=== PATIENT | female | born 1980 | race Caucasian/White ===

== ENCOUNTER → 2017-12-21 17:50 | Outpatient (CLI) | payer BC, SELFPAY ==
[2017-12-21 18:12] LABS: Absolute Lymphocyte Count 1.85 X10^3/ul (0.83-4.51); Absolute Neutrophil Count 3.9 X10^3/uL (2.0-7.7); Basophil# 0.02 X10^3/uL; Basophil% 0.3 % (0-1); Eosinophil# 0.12 X10^3/uL; Eosinophils% 1.9 % (0-5); Hematocrit 36.1 % (37-47); Lymphocyte # 1.85 X10^3/ul (4.0); Lymphocyte % 28.8 % (19-41); Mean Corp Hgb Conc 33.2 g/gl (32-36); Mean Corpuscular Hgb 30.2 pg (27.0-32.0); Mean Corpuscular Volume 90.9 fL (81-99); Mean Platelet Vol. 10.1 fl (6.2-12.0); Monocyte# 0.55 X10^3/uL; Monocyte% 8.6 % (0-10); Neutrophil # 3.87 X10^3/uL (2.7-7.7); Neutrophil % 60.2 % (47-70); POSITIVE COUNT NO; POSITIVE DIFFERENTIAL NO; POSITIVE MORPHOLOGY NO; Platelet Count 215 K/mm3 (150-450); RBC Distribution Width CV 12.6 % (11.6-14.6); RBC Distribution Width SD 41.3 fl (35.1-43.9); Red Blood Count 3.97 M/mm3 (4.2-5.4); White Blood Count 6.4 K/mm3 (4.4-11.0)
[2017-12-21 19:28] LABS: Vitamin B12 436 pg/mL (211-911); Vitamin D,25 Hydroxy 17.9 ng/mL (29.95-100.01)
[2017-12-21 19:30] LABS: ALB/GLOB Ratio 1.2 RATIO (0.9-2.4); AST(SGOT) 12 U/L (15-37); Alanine Aminotransfer ALT/SGPT 20 U/L (13-56); Albumin, Serum 3.7 g/dL (3.2-5.0); Alkaline Phosphatase 80 U/L (45-117); Anion Gap 6 (5-15); BUN 11 mg/dL (7-18); BUN/Creat Ratio 12.6 RATIO (10-20); Calcium,Total 8.4 mg/dL (8.5-10.1); Chloride 105 mmol/L (98-107); Creatinine, Serum 0.88 mg/dL (0.55-1.02); EST Glomerular Filtration Rate 77 mL/min (>60); Est Glom Filt Rate - Afr Amer 93 mL/min (>60); Globulin 3.2 g/dL (2.2-4.2); Glucose 85 mg/dL (74-106); Potassium 3.7 mmol/L (3.5-5.1); Protein, Total 6.9 g/dL (6.4-8.2); Sodium Level 140 mmol/L (136-145); T4 Free Direct 0.91 ng/dL (0.76-1.46); Thyroid Stim Hormone (TSH) 2.23 uIU/mL (0.358-3.74)
== END ==
PROVIDERS: Family Provider Family Medicine; PCP Family Medicine; Referring Provider Family Medicine; Visit Provider Family Medicine
DX: R53.83 Other fatigue (principal); E01.0 Iodine-deficiency related diffuse (endemic) goiter
CPT/HCPCS: 36415; 80053; 82306; 82607; 84439; 84443; 85025

== ENCOUNTER → 2017-12-27 09:11 | Outpatient (CLI) | payer BC, SELFPAY ==
--- NOTE | 2017-12-27 09:12 | US_ITS ---
STUDY: THYROID ULTRASOUND REASON FOR EXAM: Female, 37 years old. Thyromegaly TECHNIQUE: Ultrasound evaluation of the thyroid was performed with real-time and static bravo-scale imaging. COMPARISON: None. FINDINGS: RIGHT LOBE: The right lobe of the thyroid gland measures 5.2 x 1.7 x 1.8 cm. There is a homogeneous echotexture. There are no demonstrated solid, cystic or complex lesions. LEFT LOBE: The left lobe of the thyroid gland measures 4.5 x 1.4 x 1.7 cm. There is a homogeneous echotexture. There are no demonstrated solid, cystic or complex lesions. ISTHMUS: The isthmus measures 4.0 mm . US/Thyroid IMPRESSION: Enlarged thyroid gland. Electronically Signed: Luz Ngo MD at 21:35 EST Tel , Service support ,
== END ==
PROVIDERS: Family Provider Family Medicine; PCP Family Medicine; Referring Provider Family Medicine; Visit Provider Family Medicine
DX: E01.0 Iodine-deficiency related diffuse (endemic) goiter (principal)
CPT/HCPCS: 76536

== ENCOUNTER → 2018-02-09 15:21 | Outpatient (CLI) | payer BC, SELFPAY ==
[2018-02-09 16:07] LABS: hCG Titer Quant., Serum 507 mIU/mL (<9 non-preg)
== END ==
PROVIDERS: Family Provider Family Medicine; PCP Family Medicine; Referring Provider Obstetrics & Gynecology; Visit Provider Obstetrics & Gynecology
DX: N91.2 Amenorrhea, unspecified (principal)
CPT/HCPCS: 36415; 84702

== ENCOUNTER → 2018-02-12 14:27 | Outpatient (CLI) | payer BC, SELFPAY ==
[2018-02-12 16:19] LABS: hCG Titer Quant., Serum 1818 mIU/mL (<9 non-preg)
== END ==
PROVIDERS: Family Provider Family Medicine; PCP Family Medicine; Visit Provider Obstetrics & Gynecology
DX: Z78.9 Other specified health status (principal)
CPT/HCPCS: 36415; 84702

== ENCOUNTER → 2018-02-20 16:14 | Outpatient (CLI) | payer BC, SELFPAY ==
[2018-02-20 16:02] VITALS: BMI 36.8
[2018-02-20 17:11] LABS: Absolute Lymphocyte Count 1.51 X10^3/ul (0.83-4.51); Absolute Neutrophil Count 4.5 X10^3/uL (2.0-7.7); Basophil# 0.02 X10^3/uL; Basophil% 0.3 % (0-1); Eosinophil# 0.07 X10^3/uL; Hemoglobin 12.4 g/dl (12.0-15.0); Lymphocyte # 1.51 X10^3/ul (4.0); Lymphocyte % 22.6 % (19-41); Mean Corp Hgb Conc 32.6 g/gl (32-36); Mean Corpuscular Hgb 29.5 pg (27.0-32.0); Mean Corpuscular Volume 90.3 fL (81-99); Mean Platelet Vol. 10.3 fl (6.2-12.0); Monocyte# 0.59 X10^3/uL; Monocyte% 8.8 % (0-10); Neutrophil # 4.48 X10^3/uL (2.7-7.7); Neutrophil % 67.3 % (47-70); Platelet Count 229 K/mm3 (150-450); RBC Distribution Width CV 13.4 % (11.6-14.6); RBC Distribution Width SD 43.9 fl (35.1-43.9); Red Blood Count 4.21 M/mm3 (4.2-5.4); White Blood Count 6.7 K/mm3 (4.4-11.0)
[2018-02-20 17:22] LABS: POSITIVE COUNT NO; POSITIVE DIFFERENTIAL NO; POSITIVE MORPHOLOGY NO
[2018-02-20 18:25] LABS: HIV - WCH Non-Reactive (Nonreactive); Rubella IgG 29.9 IU/mL
[2018-02-20 21:15] LABS: Chlamydia Trachomatis by PCR Negative (Negative); Neisserai gonorrhoeae by PCR Negative (Negative); Probe Check PASS; Sample Adequacy Control PASS; Specimen Processing Control PASS
[2018-02-22 10:59] LABS: HEPATITIS B SURFACE AG Negative (Negative)
[2018-02-23 15:35] LABS: HPV APTIMA, High Risk Negative (Negative)
[2018-02-24 03:30] LABS: Rapid Plasmin Reagin (RPR) NONREACTIVE (NONREACTIVE)
== END ==
PROVIDERS: Family Provider Family Medicine; PCP Family Medicine; Referring Provider Obstetrics & Gynecology; Visit Provider Obstetrics & Gynecology
DX: Z34.90 Encounter for supervision of normal pregnancy, unspecified, unspecified trimester (principal); Z12.4 Encounter for screening for malignant neoplasm of cervix
CPT/HCPCS: 36415; 85025; 86592; 86703; 86762; 86850; 86900; 87086; 87088; 87340; 87491; 87591; 87624; 88175; G0145

== ENCOUNTER → 2018-05-08 16:44 | Outpatient (CLI) | payer BC, SELFPAY ==
[2018-05-08 16:13] VITALS: BMI 36.8
== END ==
PROVIDERS: Family Provider Family Medicine; PCP Family Medicine; Referring Provider Obstetrics & Gynecology; Visit Provider Obstetrics & Gynecology
DX: Z34.82 Encounter for supervision of other normal pregnancy, second trimester (principal)
CPT/HCPCS: 36415

== ENCOUNTER 2018-05-14 13:18 | Emergency (ER) | payer BC, SELFPAY ==
[2018-05-08 16:13] VITALS: BMI 36.8
[2018-05-14 13:18] VITALS: BP 113/73; PULSE 86; RESP 18; TEMP 36.8; O2SAT 100; BMI 35.0
--- NOTE | 2018-05-14 13:50 | US_ITS ---
STUDY: FIRST TRIMESTER OBSTETRICAL ULTRASOUND REASON FOR EXAM: Female, 37 years old. Right lower quadrant pain LMP: Unknown. TECHNIQUE: Transvaginal TECHNICAL QUALITY: Adequate. PRIOR ULTRASOUND: None. FINDINGS: is not evaluated, per request of referring provider. heart rate is measured at 130 bpm. Single live intrauterine noted but not specifically interrogated. The cervix is closed and measures 4.7 cm in length. The placenta is posterior and not low-lying. The appendix is not seen on this exam. The right ovary is not seen. The left ovary is not seen. There is no fluid in the cul de sac. US/OB Limited (No Biometrics) IMPRESSION: 1. Neither ovary nor appendix identified on this exam. No pelvic free fluid documented. 2. Single live intrauterine with heart rate measuring 130 bpm. not specifically interrogated. Electronically Signed: Tomás Kearney MD at 16:51 EDT , Service support ,
--- NOTE | 2018-05-14 13:55 | ED.DCSUM_ITS ---
History of Present Illness Chief Complaint: Abd Pain Informant: Patient Onset: Yesterday Context: Sudden Onset Timing: Continuous - not colicky Quality: ache/sore Location: RLQ Current Severity: Moderate Maximum Severity: Moderate Worsened by: nothing Relieved by: nothing Associated Symptoms: none Narrative: Patient is with one ectopic states she is currently 18 weeks , states yesterday she felt this discomfort in the right lower quadrant suddenly while she was at rest, it has persisted. She has no associated anorexia, nausea, vomiting, changes in stool or diarrhea, blood in her stool, urinary symptoms except for unchanged urinary frequency since she has been , or vaginal bleeding/discharge/leakage. It does not change when she moves or changes position. It is not worse or better after eating, urinating, or having bowel movements. She has no fevers. She has had prior cholecystectomy and a c- section, but no other abdominal surgeries. Pain does not radiate into her back but occasionally feels it into her right groin. Thinks this may sound like some type of ovarian discomfort that she has had before associated with cysts. Does not necessarily feel like round ligament pain she has had before. It is only on the right side. She is occasionally feeling the baby move. Denies any contractions. No migration of the pain. Past Medical History - Allergies and Home Meds Allergies/Adverse Reactions: Allergies hydrocodone Adverse Reaction (Verified 05/14/18 13:21) Vomiting Primary Care Physician: Brady Camargo MD [Primary Care Provider] - Surgical History: cholecystectomy Smoking Status: Never smoker Drugs: None Review of Systems General: Denies: Chills, Fever, Sweats Eyes: Denies: Visual changes - bilaterally, Diplopia ENT: Denies: Rhinorrhea, Sore throat Cardiovascular: Denies: Chest pain, Palpitations Respiratory: Denies: Dyspnea, Cough, Dyspnea on exertion Gastrointestinal: Reports: Abdominal pain. Denies: Nausea, Vomiting, Diarrhea, Constipation, Melena, Hematochezia Genitourinary: Reports: Frequency. Denies: Dysuria, Hematuria Musculoskeletal: Denies: Back pain, Extremity Pain Skin: Denies: Rash, Wounds Neurological: Denies: Headache, Weakness, Numbness Physical Exam Vital Signs/Narrative: Vital Signs Temp Pulse Resp BP Pulse Ox 05/14/18 13:18 98.3 F 86 18 113/73 100 Inital Vital Signs reviewed: Yes General: Well nourished, Well developed, No Acute Distress Head: Normocephalic, Atraumatic Eyes: Perrl, EOMI ENT: Moist mucous membranes, No rhinorrhea Neck: Supple, Nontender Cardiovascular: Regular rate, Regular rhythm, No murmurs Respiratory: No distress, CTA bilaterally, Chest nontender Abdomen: Soft, Nontender - pain not reproducible, even w/ deep palpation, Nondistended - c/w gravid uterus to about the umbilicus., Normal bowel sounds. Negative for: Psoas sign, Obturator sign, Rovsig's sign, Sandoval's sign Back: Nontender, Normal Inspection. Negative for: CVA tenderness Extremities: Nontender, No edema Skin: Normal color, No rash Neurological: Alert, Oriented x3, Cranial nerves II-XII grossly intact, Normal Strength, Normal Sensation Psychological: Normal affect, Normal Mood Diagnostic/Tx/Re-eval Impressions Obstetrics Ultrasound 05/14/18 15:28 IMPRESSION: 1. Neither ovary nor appendix identified on this exam. No pelvic free fluid documented. 2. Single live intrauterine with heart rate measuring 130 bpm. not specifically interrogated. Electronically Signed: Tomás Kearney MD at 16:51 EDT , Service support , 05/14/18 13:50 OB Limited [US] Stat 05/14/18 15:28 Transvaginal w/Preg US [US] Stat Laboratory Results 05/14/18 05/14/18 05/14/18 14:15 14:15 14:15 WBC 5.4 RBC 3.75 L Hgb 11.4 L Hct 33.8 L MCV 90.1 MCH 30.4 MCHC 33.7 RDW 14.1 RDW Differential 46.2 H Plt Count 167 MPV 9.9 Immature Gran % (Auto) 0.200 Neut % (Auto) 68.1 Lymph % (Auto) 24.1 Gregory % (Auto) 5.7 Eos % (Auto) 1.7 Baso % (Auto) 0.2 Absolute Neuts (auto) 3.7 Absolute Lymphs (auto) 1.31 Total Counted Not Reportable Sodium 137 Potassium 3.4 L Chloride 106 Carbon Dioxide 25.0 Anion Gap 6 BUN 5 L Creatinine 0.58 Estim Creat Clear Calc 127.89 Est GFR (MDRD) Af Amer 149 Est GFR (MDRD) Non-Af 123 BUN/Creatinine Ratio 8.6 L Glucose 98 Calcium 8.4 L Urine Color Yellow Urine Clarity Sl. Cloudy Urine pH 7.0 Ur Specific [place] 1.010 Urine Protein Negative Urine Glucose (UA) Normal Urine Ketones Negative Urine Occult Blood Negative Urine Nitrite Negative Urine Bilirubin Negative Urine Urobilinogen Normal Ur Leukocyte Esterase Negative Urine RBC 0 SEEN Urine WBC 0 SEEN Ur Squamous Epith Cells 5-10 SEEN Urine Bacteria 1+ Urine Mucus 0 SEEN - Medical Decision Making Obtained an ultrasound of the non-uterus parts of the pelvis, there is nothing emergent seen. The appendix is not visualized. She has no leukocytosis, her white blood count is very low especially in context of , I am not concerned about acute appendicitis given all of this. Again, I was not able to reproduce her pain, but wanted to be cautious. Her urinalysis is normal. heart tones are within normal limits. At this time I think is reasonable that she follows up with her OB doctor first. She is comfortable with that plan. Of note, she declined an offer for Tylenol here in the ED. ED Disposition - Plan for ED Patient: Disposition: Home or Assisted Living Diagnosis: RLQ abdominal pain, Second trimester Instructions: ED Pelvic Pain [facility] Referrals: Brady Camargo MD [Primary Care Provider] - 3-5 Days if not improving (and your OB) Additional Instructions: Tylenol as needed for your pain.
[2018-05-14 14:24] LABS: Mucous, Urine 0 SEEN /hpf (<or=2+); Red Blood Cells-Urine 0 SEEN /hpf (0-5); White Blood Cells 0 SEEN /hpf (0-5)
[2018-05-14 14:26] LABS: Absolute Lymphocyte Count 1.31 X10^3/ul (0.83-4.51); Absolute Neutrophil Count 3.7 X10^3/uL (2.0-7.7); Basophil# 0.01 X10^3/uL; Basophil% 0.2 % (0-1); Color, Urine Yellow (Yellow); Eosinophil# 0.09 X10^3/uL; Eosinophils% 1.7 % (0-5); Glucose, Dipstick Normal (Normal); Hematocrit 33.8 % (37-47); Hemoglobin 11.4 g/dl (12.0-15.0); Ketone-Dipstick Negative (Negative); Leukocyte Esterase-Dipstick Negative /ul (Negative); Lymphocyte # 1.31 X10^3/ul (4.0); Lymphocyte % 24.1 % (19-41); Mean Corp Hgb Conc 33.7 g/gl (32-36); Mean Corpuscular Hgb 30.4 pg (27.0-32.0); Mean Corpuscular Volume 90.1 fL (81-99); Mean Platelet Vol. 9.9 fl (6.2-12.0); Monocyte# 0.31 X10^3/uL; Monocyte% 5.7 % (0-10); Neutrophil % 68.1 % (47-70); Nitrite-Dipstick Negative (Negative); Occult Blood-Urine Negative /ul (Negative); Platelet Count 167 K/mm3 (150-450); Protein-Dipstick Negative (Negative); RBC Distribution Width CV 14.1 % (11.6-14.6); RBC Distribution Width SD 46.2 fl (35.1-43.9); Red Blood Count 3.75 M/mm3 (4.2-5.4); Urine Bilirubin Dipstick Negative (Negative); Urine Clarity Sl. Cloudy (Clear); Urine Urobilinogen Normal (Normal); White Blood Count 5.4 K/mm3 (4.4-11.0)
[2018-05-14 14:27] LABS: POSITIVE COUNT NO; POSITIVE DIFFERENTIAL NO; POSITIVE MORPHOLOGY NO
[2018-05-14 14:29] LABS: Bacteria 1+ /hpf (None Seen); Squamous Epithelial Cells - UA 5-10 SEEN /hpf (5-10)
[2018-05-14 14:37] LABS: Anion Gap 6 (5-15); BUN 5 mg/dL (7-18); BUN/Creat Ratio 8.6 RATIO (10-20); Calcium,Total 8.4 mg/dL (8.5-10.1); Chloride 106 mmol/L (98-107); Creatinine, Serum 0.58 mg/dL (0.55-1.02); EST Glomerular Filtration Rate 123 mL/min (>60); Est Glom Filt Rate - Afr Amer 149 mL/min (>60); Estimated Creatinine Clearance 127.89 ml/min; Glucose 98 mg/dL (74-106); Potassium 3.4 mmol/L (3.5-5.1); Sodium Level 137 mmol/L (136-145)
--- NOTE | 2018-05-14 15:28 | US_ITS ---
STUDY: FIRST TRIMESTER OBSTETRICAL ULTRASOUND REASON FOR EXAM: Female, 37 years old. Right lower quadrant pain LMP: Unknown. TECHNIQUE: Transvaginal TECHNICAL QUALITY: Adequate. PRIOR ULTRASOUND: None. FINDINGS: is not evaluated, per request of referring provider. heart rate is measured at 130 bpm. Single live intrauterine noted but not specifically interrogated. The cervix is closed and measures 4.7 cm in length. The placenta is posterior and not low-lying. The appendix is not seen on this exam. The right ovary is not seen. The left ovary is not seen. There is no fluid in the cul de sac. US/Transvaginal w/Preg US IMPRESSION: 1. Neither ovary nor appendix identified on this exam. No pelvic free fluid documented. 2. Single live intrauterine with heart rate measuring 130 bpm. not specifically interrogated. Electronically Signed: Tomás Kearney MD at 16:51 EDT , Service support ,
== END 2018-05-14 17:35 | disposition home or self-care (01) ==
PROVIDERS: Emergency Provider Emergency Medicine; Family Provider Family Medicine; PCP Family Medicine
DX: O26.892 Other specified pregnancy related conditions, second trimester (principal); R10.31 Right lower quadrant pain; Z3A.18 18 weeks gestation of pregnancy; Z90.49 Acquired absence of other specified parts of digestive tract
CPT/HCPCS: 76815; 76817; 80048; 81001; 85025; 99282; A4216

== ENCOUNTER → 2018-07-28 14:40 | Outpatient (CLI) | payer BC, SELFPAY ==
[2018-07-28 14:13] VITALS: BMI 35.0
[2018-07-28 16:17] LABS: Absolute Lymphocyte Count 1.49 X10^3/ul (0.83-4.51); Absolute Neutrophil Count 4.6 X10^3/uL (2.0-7.7); Basophil# 0.01 X10^3/uL; Basophil% 0.1 % (0-1); Eosinophil# 0.09 X10^3/uL; Eosinophils% 1.3 % (0-5); Hematocrit 31.5 % (37-47); Hemoglobin 10.4 g/dl (12.0-15.0); Lymphocyte # 1.49 X10^3/ul (4.0); Mean Corpuscular Hgb 30.6 pg (27.0-32.0); Mean Corpuscular Volume 92.6 fL (81-99); Mean Platelet Vol. 10.5 fl (6.2-12.0); Monocyte# 0.61 X10^3/uL; Neutrophil # 4.57 X10^3/uL (2.7-7.7); Neutrophil % 67.6 % (47-70); POSITIVE COUNT NO; POSITIVE DIFFERENTIAL NO; POSITIVE MORPHOLOGY NO; Platelet Count 151 K/mm3 (150-450); RBC Distribution Width CV 14.1 % (11.6-14.6); RBC Distribution Width SD 47.4 fl (35.1-43.9); White Blood Count 6.8 K/mm3 (4.4-11.0)
[2018-07-28 17:14] LABS: Glucose Challenge Gest 1H 50g 125 mg/dL (70-140)
== END ==
LOC: LAB 14:41
PROVIDERS: Family Provider Family Medicine; PCP Family Medicine; Referring Provider Obstetrics & Gynecology; Visit Provider Obstetrics & Gynecology
DX: O09.90 Supervision of high risk pregnancy, unspecified, unspecified trimester (principal)
CPT/HCPCS: 36415; 82950; 85025

== ENCOUNTER → 2018-09-18 08:54 | Outpatient (CLI) | payer BC, SELFPAY ==
[2018-09-06 15:24] VITALS: BMI 35.0
--- NOTE | 2018-09-18 08:55 | US_ITS ---
STUDY: SECOND AND THIRD TRIMESTER OBSTETRICAL ULTRASOUND REASON FOR EXAM: Female, 37 years old. Routine survey. LMP: January 09, 2018. TECHNIQUE: Transabdominal TECHNICAL QUALITY: Adequate. PRIOR ULTRASOUND: Comparison is made with prior study dated May 14, 2018. FINDINGS: There is a single intrauterine fetus. The fetus is in a cephalic presentation. There is demonstrated cardiac activity with a heart rate of 149 bpm. There is a normal amniotic fluid volume. The largest amniotic fluid pocket measures 4.0 cm. The amniotic fluid index (ALONDRA) is 11.2 cm. The placenta is fundal in location. There are Grade 1 placental changes. The cervix measures 4.1 cm in length. The bilateral adnexal regions are normal. BIOMETRY: BPD: 9.26 cm: 37 weeks, 5 days HC: 33.22 cm: 38 weeks, 0 days AC: 36.11 cm: 40 weeks, 1 days FL: 7.07 cm: 36 weeks, 2 days CI: 82% FL/BPD: 76% FL/HC: FL/AC: 20% HC/AC: 0.92 age by current US: 38 weeks, 1 days. LISA by current US: October 01, 2018. Estimated weight: 3564 grams, +/- 520 grams, 98 %. Age by LMP: 36 weeks, 0 days. LISA by LMP: October 16, 2018. US/OB Limited With Biometrics IMPRESSION: Single live intrauterine gestation with a mean gestational age of 38 weeks and 1 day. Electronically Signed: Brad Brown, at 15:33 EDT , Service support ,
== END ==
PROVIDERS: Family Provider Family Medicine; PCP Family Medicine; Referring Provider Obstetrics & Gynecology; Visit Provider Obstetrics & Gynecology
DX: O36.5930 Maternal care for other known or suspected poor fetal growth, third trimester, not applicable or unspecified (principal); Z3A.38 38 weeks gestation of pregnancy
CPT/HCPCS: 76816

== ENCOUNTER → 2018-09-22 17:05 | Outpatient (CLI) | payer BC, SELFPAY ==
[2018-09-22 10:38] VITALS: BMI 35.0
== END ==
PROVIDERS: Family Provider Family Medicine; PCP Family Medicine; Referring Provider Obstetrics & Gynecology; Visit Provider Obstetrics & Gynecology
DX: O09.90 Supervision of high risk pregnancy, unspecified, unspecified trimester (principal); Z3A.00 Weeks of gestation of pregnancy not specified
CPT/HCPCS: 87081

== ENCOUNTER 2018-09-26 17:00 | Outpatient (CLI) | payer BC, SELFPAY ==
[2018-09-22 10:38] VITALS: BMI 35.0
[2018-09-26 17:26] VITALS: BMI 38.7
[2018-09-26 17:50] LABS: ROM Internal Control Test YES-OK TO RESULT pt. (Internal QC); ROM Patient Test Negative (Negative)
--- NOTE | 2018-09-27 04:26 | OB.TRI.PN_ITS ---
Progress Notes Date of Service: 09/26/18 Progress Note: Patient presented for questionable loss of fluid and some contractions. Negative ROM plus cervix fingertip dilated no change from previous exam in office heart tone 140 moderate variability reactive no decelerations Matthews: Irregular contractions Assessment and plan false labor reassuring status DC home labor precautions reactive NST Laboratory Studies: Laboratory Tests 09/26/18 Range/Units 17:20 Vag Amniotic Fld Detect Negative (Negative) - Problem List (1) False labor Status: Acute Multi Select Codes - Urinary/Genital Urinary/Genital CPT Codes: 91109-92 non-stress test Interp
== END 2018-09-26 18:15 | disposition home or self-care (01) ==
LOC: WPOUT 17:05 → OBT 17:05
PROVIDERS: Family Provider Family Medicine; PCP Family Medicine; Referring Provider Obstetrics & Gynecology; Visit Provider Obstetrics & Gynecology
DX: O47.9 False labor, unspecified (principal); Z3A.00 Weeks of gestation of pregnancy not specified
CPT/HCPCS: 59050; 84112; 99218; G0378

== ENCOUNTER 2018-10-09 10:00 | Inpatient (IN) | payer BC, SELFPAY ==
[2018-07-28 14:13] VITALS: BMI 35.0
[2018-10-05 14:22] VITALS: BMI 38.7
[2018-10-09] VITALS (17 sets, daily range): BP systolic 102–133; BP diastolic 55–83; PULSE 63–87; RESP 16–18; TEMP 36.1–37.1; O2SAT 97–100; BMI 39.6
[2018-10-09] MEDS: Lactated Ringers 1,000 ML 999 ML IV (10:43)
[2018-10-09 11:00] LABS: Absolute Neutrophil Count 4.4 X10^3/uL (2.0-7.7); Basophil# 0.03 X10^3/uL; Basophil% 0.4 % (0-1); Eosinophil# 0.06 X10^3/uL; Eosinophils% 0.9 % (0-5); Hematocrit 30.1 % (37-47); Hemoglobin 9.7 g/dL (12.0-15.0); Lymphocyte % 25.2 % (19-41); Mean Corp Hgb Conc 32.2 g/dL (32-36); Mean Corpuscular Hgb 29.2 pg (27.0-32.0); Mean Corpuscular Volume 90.7 fL (81-99); Mean Platelet Vol. 11.6 fl (6.2-12.0); Monocyte# 0.52 X10^3/uL; Monocyte% 7.7 % (0-10); NRBC Flagged by Analyzer 0 % (0-5); Neutrophil # 4.39 X10^3/uL (2.7-7.7); Neutrophil % 65.1 % (47-70); Platelet Count 156 K/mm3 (150-450); RBC Distribution Width CV 13.9 % (11.6-14.6); RBC Distribution Width SD 45.7 fl (35.1-43.9); Red Blood Count 3.32 M/mm3 (4.2-5.4); White Blood Count 6.8 K/mm3 (4.4-11.0)
[2018-10-09] MEDS: Sodium Citrate/Citric Acid 30 ML UDC PO (11:22)
[2018-10-09] MEDS: Lactated Ringers 1,000 ML 150 ML IV (11:34)
[2018-10-09] MEDS: Cefazolin 2 GM in 0.9% Normal Saline 100 ML IV (12:53)
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
--- NOTE | 2018-10-09 12:55 | PCM.OPRPT ---
Problem List (1) Advanced maternal age (AMA) in Status: Acute Comment: nipt low risk. growth us ordered 36 weeks. (2) False labor Status: Acute (3) History of delivery Status: Acute Comment: x 4, plan RLTCS BTL (4) History of ectopic Status: Acute (5) Obesity affecting Status: Acute Qualifiers: Comment: BMI 36, discussed healthy weight gain, 1 tm glucola. (6) Status: Acute Qualifiers: Comment: carrier screening negative. NIPT screening- low risk, female. anatomy scan reviewed. (7) Supervision of high risk , antepartum Status: Acute Comment: PRR LISA 10/16/18 girl Jerrell Cerda Maleah, Maylee Rai Delivery Classification: Scheduled Final LISA: 10/16/18 Gestational age: 39 Weeks and 0 Days Indications for : Repeat Elective , Desires elective sterilization Description of Procedure: The patient is a 37-year-old at 39 weeks desired sterilization and repeat presented for repeat . Spinal anesthesia was placed without difficulty. Aquino catheter was placed. The patient was placed in the dorsal supine position with leftward tilt. Patient was prepped and draped in the normal sterile fashion. Pfannenstiel skin incision was made with the scalpel and carried through to the underlying layer of fascia with the scalpel. Fascia was nicked in the midline and the incision extended laterally. Aquino bulb was palpated to be significantly superior to where it should be under the rectus muscles therefore the balloon was retracted down and the initial incision to dissected the rectus bellies off the fascial incision was made very high and the initial intraperitoneal incision was made very high. The rectus bellies were dissected off superiorly and inferiorly with out complication both sharply and bluntly. The peritoneum was entered sharply and carefully dissected around laterally and inferiorly. the incision was stretched and a low transverse uterine incision was made with the scalpel after sharp and blunt dissection of significant scar tissue.. The 's head was delivered atraumatically followed by the anterior and posterior shoulders without complication the rest of the infant delivered. The cord was clamped and cut and the infant was handed off to awaiting nurse. The placenta was delivered spontaneously immediately following and was noted to be intact and have a three-vessel cord. The uterus was exteriorized cleared of all clots and debris, and the incision was closed in a single layer closure using #1 Monocryl. Surgical snow was placed over the area and an additional [id number] suture was used to obtain excellent hemostasis of the incision. The ovaries and fallopian tube were noted to be within normal limits. Right fallopian tube was removed using the LigaSure device without complication transecting across the bell salpinx. Excellent hemostasis was noted. The uterus was returned to the maternal abdomen and gutters were cleared of all clots and debris. The peritoneum was closed with 3-0 Monocryl in a running fashion. Suture was used over the left rectus belly to obtain excellent hemostasis. Fascia was closed with 0 PDS in a running fashion. Subcutaneous tissue was copiously irrigated and the skin was closed with 3-0 Monocryl in a subcuticular fashion. Steri-Strips and Mepilex dressing were applied without complication. Patient was taken to recovery in stable condition. Amniotic Membrane Rupture Type: Artificial Amniotic Fluid Description: Clear Placenta Disposition: [facility] Drain: Aquino to straight drain Cord Entanglement: None Esitmated Blood Loss (ml): 900 Infant Gender: Female Delayed cord clamping: Yes Pre-op Antibiotic Given: Ancef 2 grams IV x1 Pt instructed on risks of surgery: Bleeding, Anesthesia Risks, Permanency Complications: None - Admit VTE Documentation VTE Present on Admission: No VTE Mechan Device Prophylaxis: SCD's Multi Select Codes - Urinary/Genital Urinary/Genital CPT Codes: 82377 C/S+TL, 84113 Delivery [facility]
--- NOTE | 2018-10-09 13:15 | FALS_PTH ---
PATIENT: MARY PAZ LOC: [facility] U#:[id number] AGE/SX: 37/F ROOM: WP009 RE10/09/[address]: Dr. Zaida Hinds MD : [id number] BED: 1 DIS: 10/11/2018 SPEC #: [id number] RECD: 10/09/18 15:09 STATUS: ALAN REQ #: [id number] SARITHA: 10/09/18 13:[address]: Zaida Hinds DEPT: SURGICAL PATHOLOGY RECD BY: Grzegorz Arevalo ENTERED: 10/10/18 14:16 SP TYPE: FALL TUBES OTHR DR: Dr. Brady Camargo MD Tissues: Fallopian tube Procedures: Surgery Specimen Level II HEADER OPERATION: Tubal ligation PRE-OP DIAGNOSIS: Tubal TISSUE SUBMITTED: Fallopian tube MICROSCOPIC DIAGNOSIS Fallopian tube, salpingectomy: Complete cross section of fallopian tube with no pathologic change. Benign paratubular cyst. AM:sp 10/11/18 MICROSCOPIC DESCRIPTION Slides are reviewed. GROSS DESCRIPTION Received in fixative is one container labeled with the patient's name and designated right tube. The specimen consists of a fallopian tube measuring 6 cm in length and up to 1 cm in diameter. Fimbrial end is identified. A paratubal cyst is noted measuring 2 cm in greatest dimension. It is filled with clear fluid. Sections reveal unremarkable cut surfaces. Vocational Education Professional sections are submitted in 1 cassette. /ANT:andrea 10/10/18 TC: 5 CPT: 03259
[2018-10-09] MEDS: Oxytocin 30 units/NS 500 ml 30 UNITS/500 ML IV.SOLN 167 UNITS IV (14:07)
[2018-10-09] MEDS: Lactated Ringers 1,000 ML 100 ML IV (17:24)
[2018-10-09] MEDS: Lactated Ringers 500 ML 999 ML IV (20:31)
[2018-10-09] MEDS: Ketorolac 30 MG/ML Syringe IV (20:31)
[2018-10-09] MEDS: 0.9% Saline Lock 10 ML Syringe 5 ML IV (20:31)
[2018-10-10] VITALS (15 sets, daily range): BP systolic 91–128; BP diastolic 45–68; PULSE 67–99; RESP 14–18; TEMP 36.2–37.1; O2SAT 96–100
[2018-10-10] MEDS: Ketorolac 30 MG/ML Syringe IV ×4 (02:37→20:06)
[2018-10-10 06:09] LABS: Hematocrit 25.8 % (37-47); Hemoglobin 8.4 g/dL (12.0-15.0); Mean Corp Hgb Conc 32.6 g/dL (32-36); Mean Corpuscular Hgb 29.7 pg (27.0-32.0); Mean Corpuscular Volume 91.2 fL (81-99); Platelet Count 113 K/mm3 (150-450); RBC Distribution Width CV 13.9 % (11.6-14.6); RBC Distribution Width SD 45.9 fl (35.1-43.9); Red Blood Count 2.83 M/mm3 (4.2-5.4)
--- NOTE | 2018-10-10 07:27 | PCM.PN.OB ---
Subjective: doing well no complaints pain controlled no CP SOB N V, up to bedside, lochia moderate, going well - Physical Exam General: Alert, Oriented x3 Abdomen: Soft, Non-Distended, - - FF below U. Dressing dry and intact. Minimal tenderness with exam Vital Signs Temp Pulse Resp BP Pulse Ox 97.1 F L 68 16 100/45 L 96 10/10/18 03:30 10/10/18 06:00 10/10/18 06:00 10/10/18 03:30 10/10/18 06:00 Oxygen Delivery Method Room Air Weight: 253 lb 1.451 oz Body Mass Index (BMI) 39.6 Intake and Output for Last 24 Hours 10/08/18 10/09/18 10/10/18 23:59 23:59 23:59 Intake Total 5166.67 / 5166.67 816.67 / 816.67 Output Total 275 / 275 2100 / 2100 Balance 4891.67 / 4891.67 -1283.33 / -1283.33 Laboratory Tests Past 24 Hrs 10/09/18 10/09/18 10/10/18 10:35 10:35 05:45 WBC 6.8 6.0 RBC 3.32 L 2.83 L Hgb 9.7 L 8.4 L Hct 30.1 L 25.8 L MCV 90.7 91.2 MCH 29.2 29.7 MCHC 32.2 32.6 RDW Std Deviation 45.7 H 45.9 H RDW Coeff of Luna 13.9 13.9 Plt Count 156 113 L MPV 11.6 11.0 Immature Gran % (Auto) 0.700 Neut % (Auto) 65.1 Lymph % (Auto) 25.2 [place] % (Auto) 7.7 Eos % (Auto) 0.9 Baso % (Auto) 0.4 Absolute Neuts (auto) 4.4 Absolute Lymphs (auto) 1.70 Nucleated RBC % 0 Blood Type O POSITIVE Antibody Screen NEGATIVE Medical Necessity - Tobacco Use Smoking Status: Never smoker Assessment/Plan All Active Problems (Last Reviewed 10/05/18 @ 14:22 by Lubna Onofre) False labor (Acute) (Acute) Obesity affecting (Acute) History of ectopic (Acute) Advanced maternal age (AMA) in (Acute) History of delivery (Acute) Supervision of high risk , antepartum (Acute) s/p LTCS PPD # 1 1. routine post care 2. breast feeding- support given 3. rh positive 4. rubella immune
[2018-10-10] MEDS: 0.9% Saline Lock 10 ML Syringe 5 ML IV ×3 (08:26→20:06)
[2018-10-10] MEDS: Acetaminophen 500 MG Tablet 1000 MG PO (16:57)
[2018-10-10] MEDS: oxyCODONE 5 MG Tablet PO ×2 (18:30→23:55)
[2018-10-11] MEDS: Ketorolac 30 MG/ML Syringe IV ×3 (02:14→13:38)
[2018-10-11] MEDS: 0.9% Saline Lock 10 ML Syringe 5 ML IV (02:14)
[2018-10-11 02:15] VITALS: BP 112/64; PULSE 86; RESP 16; TEMP 36.5; O2SAT 94
--- NOTE | 2018-10-11 07:40 | PCM.PN.OB ---
Subjective: doing well no complaints pain controlled no CP SOB N V ambulating well tolerating po lochia moderate, going well - Physical Exam General: Alert, Oriented x3 Abdomen: Soft, Non-Distended, - - FF below U. Dressing dry and intact. Pain controlled Vital Signs Temp Pulse Resp BP Pulse Ox 97.7 F L 86 16 112/64 94 10/11/18 02:15 10/11/18 02:15 10/11/18 02:15 10/11/18 02:15 10/11/18 02:15 Oxygen Delivery Method Room Air Weight: 253 lb 1.451 oz Body Mass Index (BMI) 39.6 Intake and Output for Last 24 Hours 10/09/18 10/10/18 10/11/18 23:59 23:59 23:59 Intake Total 5166.67 / 5166.67 816.67 / 816.67 Output Total 275 / 275 3300 / 3300 Balance 4891.67 / 4891.67 -2483.33 / -2483.33 Medical Necessity - Tobacco Use Smoking Status: Never smoker Assessment/Plan All Active Problems (Last Reviewed 10/05/18 @ 14:22 by Lubna Onofre) False labor (Acute) (Acute) Obesity affecting (Acute) History of ectopic (Acute) Advanced maternal age (AMA) in (Acute) History of delivery (Acute) Supervision of high risk , antepartum (Acute) s/p LTCS PPD # 2 1. routine post care 2. breast feeding- support given 3. rh positive 4. rubella immune 5. home today
[2018-10-11] MEDS: oxyCODONE 5 MG Tablet PO ×2 (07:51→13:48)
--- NOTE | 2018-10-11 07:57 | DCINST_ITS ---
Additional Instructions: If you experience any of the following, contact your healthcare provider. * Bleeding that soaks a pad every hour for 2 hours * Fever 100.4 or higher * Unrelieved incision or abdominal pain * Swelling, redness, discharge or bleeding from your incision or episiotomy site * Your incision begins to separate * Problems urinating (including inability to urinate or burning while urinating). * Visual changes * Severe headache * Flu-like symptoms * Pain or redness in one of both of your breasts * Pain, warmth, tenderness or swelling in your legs, especially the calf area * Frequent nausea and vomiting * Symptoms of depression or anxiety If you experience any of the following, call 911 or go to the nearest Emergency Room. * Chest pain * Problems breathing * Seizure activity * Partial or complete paralysis of a body part, slurred speech, weakness or drooping of the face, or a sudden inability to walk or hold your balance Allergies/Adverse Reactions: Allergies hydrocodone Adverse Reaction (Verified 10/05/18 14:22) Vomiting Medications to take at Discharge vitamin#30 30 mg iron-10 mg iron-folic acid 1 mg-omg3 capsule 1 cap PO DAILY cap 02/20/18 Ferrous Sulfate 325 mg PO DAILY@0800 09/26/18 Ferrous Sulfate 325 mg PO DAILY #30 tab 10/11/18 Naproxen [Naprosyn] 500 mg PO BID PRN PRN #60 tab 10/11/18 Oxycodone HCl/Acetaminophen [Percocet 5/325] 1 - 2 tab PO Q4H PRN PRN 7 Days #28 tab 10/11/18 The following prescriptions were given: Ferrous Sulfate 325 mg PO DAILY #30 tab Transmission Status: Pending to [facility] Naproxen [Naprosyn] 500 mg PO BID PRN PRN #60 tab PRN Reason: Pain Transmission Status: Pending to [facility] Oxycodone HCl/Acetaminophen [Percocet 5/325] 1 - 2 tab PO Q4H PRN PRN 7 Days #28 tab PRN Reason: Pain Transmission Status: Sent to [facility] Follow-Up: Call to make an appointment with your doctor for an incision check in 1-2 weeks. You will also need a 6 week post- follow up appointment. Test results from this visit will be discussed in further detail at your follow- up appointment, if applicable. Primary Care Physician: Brady Camargo MD [Primary Care Provider] -
--- NOTE | 2018-10-11 07:57 | PCM.DCCSEC ---
Additional Instructions: If you experience any of the following, contact your healthcare provider. Bleeding that soaks a pad every hour for 2 hours Fever 100.4 or higher Unrelieved incision or abdominal pain Swelling, redness, discharge or bleeding from your incision or episiotomy site Your incision begins to separate Problems urinating (including inability to urinate or burning while urinating). Visual changes Severe headache Flu-like symptoms Pain or redness in one of both of your breasts Pain, warmth, tenderness or swelling in your legs, especially the calf area Frequent nausea and vomiting Symptoms of depression or anxiety If you experience any of the following, call 911 or go to the nearest Emergency Room. Chest pain Problems breathing Seizure activity Partial or complete paralysis of a body part, slurred speech, weakness or drooping of the face, or a sudden inability to walk or hold your balance Allergies/Adverse Reactions: Allergies hydrocodone Adverse Reaction (Verified 10/05/18 14:22) Vomiting Medications to take at Discharge vitamin#30 30 mg iron-10 mg iron-folic acid 1 mg-omg3 capsule 1 cap PO DAILY cap 02/20/18 Ferrous Sulfate 325 mg PO DAILY@0800 09/26/18 Ferrous Sulfate 325 mg PO DAILY #30 tab 10/11/18 Naproxen [Naprosyn] 500 mg PO BID PRN PRN #60 tab 10/11/18 Oxycodone HCl/Acetaminophen [Percocet 5/325] 1 - 2 tab PO Q4H PRN PRN 7 Days #28 tab 10/11/18 The following prescriptions were given: Ferrous Sulfate 325 mg PO DAILY #30 tab Transmission Status: Pending to [facility] Naproxen [Naprosyn] 500 mg PO BID PRN PRN #60 tab PRN Reason: Pain Transmission Status: Pending to [facility] Oxycodone HCl/Acetaminophen [Percocet 5/325] 1 - 2 tab PO Q4H PRN PRN 7 Days #28 tab PRN Reason: Pain Transmission Status: Sent to [facility] Follow-Up: Call to make an appointment with your doctor for an incision check in 1-2 weeks. You will also need a 6 week post- follow up appointment. Test results from this visit will be discussed in further detail at your follow-up appointment, if applicable. Primary Care Physician: Brady Camargo MD [Primary Care Provider] -
[2018-10-11 08:00] VITALS: BP 114/69; PULSE 84; RESP 16; TEMP 36.6
[2018-10-11 13:29] LABS: Pathology Specimen OB SEE PATHOLOGY REPORT
[2018-10-11 13:31] VITALS: BP 118/69; PULSE 71; RESP 16; TEMP 36.6
== END 2018-10-11 14:50 | disposition home or self-care (01) | DRG 785 ==
PROVIDERS: Admitting Provider Obstetrics & Gynecology; Family Provider Family Medicine; PCP Family Medicine; Referring Provider Obstetrics & Gynecology; Visit Provider Obstetrics & Gynecology
PROC: 10D00Z1 Extraction of Products of Conception, Low, Open Approach (ICD-10-PCS; CPT 59514; principal; 2018-10-09 11:45)
DX: O34.211 Maternal care for low transverse scar from previous cesarean delivery (principal); O99.214 Obesity complicating childbirth; E66.9 Obesity, unspecified; Z30.2 Encounter for sterilization; Z37.0 Single live birth; Z90.49 Acquired absence of other specified parts of digestive tract; Z87.59 Personal history of other complications of pregnancy, childbirth and the puerperium; Z3A.39 39 weeks gestation of pregnancy
CPT/HCPCS: 85025; 85027; 86850; 86900; 86901; 88302; 99218; J7120; A4216; G0378

== ENCOUNTER → 2019-04-19 | Outpatient (CLI) | payer BC, SELFPAY ==
[2019-03-28 11:30] VITALS: BMI 39.6
[2019-04-19 17:26] LABS: Absolute Lymphocyte Count 1.97 X10^3/uL (0.83-4.51); Absolute Neutrophil Count 4.3 X10^3/uL (2.0-7.7); Basophil# 0.04 X10^3/uL; Basophil% 0.6 % (0-1); Eosinophil# 0.19 X10^3/uL; Eosinophils% 2.7 % (0-5); Hematocrit 36.9 % (37-47); Lymphocyte # 1.97 X10^3/ul (4.0); Lymphocyte % 27.9 % (19-41); Mean Corp Hgb Conc 32.5 g/dL (32-36); Mean Corpuscular Hgb 28.6 pg (27.0-32.0); Mean Corpuscular Volume 88.1 fL (81-99); Monocyte# 0.58 X10^3/uL; Monocyte% 8.2 % (0-10); NRBC Flagged by Analyzer 0 % (0-5); Neutrophil # 4.26 X10^3/uL (2.7-7.7); Neutrophil % 60.3 % (47-70); Platelet Count 228 K/mm3 (150-450); RBC Distribution Width CV 13.2 % (11.6-14.6); RBC Distribution Width SD 42.8 fl (35.1-43.9); Red Blood Count 4.19 M/mm3 (4.2-5.4); White Blood Count 7.1 K/mm3 (4.4-11.0)
[2019-04-19 18:12] LABS: T4 Free Direct 0.93 ng/dL (0.76-1.46); Thyroid Stim Hormone (TSH) 1.96 uIU/mL (0.358-3.74)
== END | disposition home or self-care (01) ==
LOC: LABSPEC 17:05
PROVIDERS: PCP Family Medicine; Referring Provider Obstetrics & Gynecology; Visit Provider Obstetrics & Gynecology
DX: R10.9 Unspecified abdominal pain (principal); G89.29 Other chronic pain; E56.9 Vitamin deficiency, unspecified; R53.82 Chronic fatigue, unspecified
CPT/HCPCS: 36415; 82306; 84439; 84443; 85025

== ENCOUNTER → 2019-04-20 | Outpatient (CLI) | payer BC, SELFPAY ==
[2019-03-28 11:30] VITALS: BMI 39.6
--- NOTE | 2019-04-20 08:16 | CT_ITS ---
STUDY: CT ABDOMEN AND PELVIS WITH AND WITHOUT CONTRAST REASON FOR EXAM: Female, 38 years old. UMBILICAL AND PELVIC PAIN. PRIOR X 5 AND CHOLECYSTECTOMY RADIATION DOSAGE (If Supplied By Facility): CTDIvol = ( 20.17 ) mGy, DLP = ( 2566.99 ) mGycm TECHNIQUE: Transaxial images were obtained from the dome of the diaphragm to the symphysis pubis with oral contrast. Oral and IV Readi-CAT and 100mL Isovue-300 was administered. Sagittal and coronal images were reconstructed. Individualized dose optimization techniques were used for this CT. COMPARISON: None. FINDINGS: The visualized lung bases are unremarkable. The visualized portions of the heart are within normal limits. Normal liver. There are surgical clips in the gallbladder fossa consistent with a prior cholecystectomy. Borderline splenomegaly. Normal pancreas. Normal bilateral adrenal glands. Normal right kidney. Normal left kidney. Normal visualized stomach. Normal small intestine. Normal colon. The appendix is visualized and appears normal. Normal abdominal aorta. Normal inferior vena cava. There is borderline retroperitoneal lymphadenopathy with enlarged nodes no greater than 10mm in the short axis diameter. Normal urinary bladder. Small lymph nodes are seen in the right lower quadrant mesentery suggestive of mesenteric adenitis. There is a 2.2 cm cyst in the right ovary. There is a small umbilical hernia containing fat. Normal osseous structures. CT/CT Abd/Pelvis W/WO Contrast IMPRESSION: Borderline splenomegaly. 2.2 cm cyst in the right ovary. Findings suggestive of mesenteric adenitis in the right lower quadrant. Electronically Signed: Brad Brown, at 15:15 EST , Service support ,
== END | disposition home or self-care (01) ==
LOC: CT 08:16
PROVIDERS: PCP Family Medicine; Referring Provider Obstetrics & Gynecology; Visit Provider Obstetrics & Gynecology
DX: R10.9 Unspecified abdominal pain (principal); G89.29 Other chronic pain
CPT/HCPCS: 74178; Q9967

== ENCOUNTER 2020-07-17 23:10 | Emergency (ER) | payer BC, SELFPAY ==
[2019-04-26 09:28] VITALS: BMI 39.6
[2020-07-17 23:11] VITALS: BP 134/64; PULSE 86; RESP 19; TEMP 36.8; O2SAT 98; BMI 38.3
--- NOTE | 2020-07-17 23:19 | RAD_ITS ---
STUDY: X-RAY CHEST REASON FOR EXAM: Female, 39 years old. Chest pain. TECHNIQUE: AP COMPARISON: 03/05/2017 CXR FINDINGS: No apparent pneumothorax, pneumonia, pleural effusion, or edema. Cardiac silhouette, roderick and mediastinal contours are within normal limits. No acute osseous abnormality. No evidence of free air under the diaphragm. RAD/Chest 1 View (Portable) IMPRESSION: Negative chest radiograph. Electronically Signed: Rasta Mas MD at 0:20 EDT Tel , Service support ,
--- NOTE | 2020-07-17 23:19 | EKG12_ITS ---
Test Reason : CP Blood Pressure : / mmHG Vent. Rate : 077 BPM Atrial Rate : 077 BPM P-R Int : 158 ms QRS Dur : 086 ms QT Int : 368 ms P-R-T Axes : 035 -06 009 degrees QTc Int : 416 ms Normal sinus rhythm Normal ECG Confirmed by VALORIE BARRERA, JONO ([id number]), development editor TYRONE ROSSI ([id number]) on 07/21/2020 10:33:31 AM Referred By: CL Confirmed By:JONO EUGENE MD
--- NOTE | 2020-07-17 23:20 | ED.VIS.CHEST ---
HPI History of Present Illness Chief Complaint: Chest Pain Informant: patient Narrative Narrative: 39-year-old female presents with concern for chest pain. States it began approximately 2 hours ago. States that it was sharp in nature and has improved. States that she was somewhat short of breath. Denies any nausea, vomiting, diaphoresis. Denies any fever, chills, cough. Denies any trauma. Denies any history of DVT or pulmonary embolism. Denies any recent long trips, surgeries, hospitalizations. PFSH PFSH Medical History Arthritis Chronic abdominal pain Fatigue History of ectopic Thyroid disorder Home Medications cholecalciferol (vitamin D3) 75 mcg (3,000 unit) tablet 6,000 unit PO DAILY tab 04/26/19 [History Last Taken Unknown] omega-3 fatty acids 1,000 mg capsule 1,000 mg PO DAILY 04/26/19 [History Last Taken Unknown] vitamin B complex 1 tab PO DAILY 04/26/19 [History Last Taken Unknown] Allergy/AdvReac Type Severity Reaction Status Date / Time hydrocodone AdvReac Vomiting Verified 07/17/20 23:18 Family History Brother High cholesterol Grandmother Asthma High cholesterol Thyroid disorder Surgical History delivery delivered H/O unilateral salpingectomy History of esophagogastroduodenoscopy (EGD) Hx of cholecystectomy Hx of colonoscopy Hx of unilateral salpingectomy Social History Smoking Status: Never smoker alcohol intake: never substance use type: does not use caffeine: No what type of physical activity do you participate in: walking seatbelt use: always do you feel safe at home: Yes 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 [employer] ED Constitutional Constitutional ED: Denies chills, fever(s) or sweats Eyes Eyes: Denies blurry vision, change in vision or diplopia ENT ENT ED: Denies rhinorrhea or sore throat Cardiovascular Cardiovascular: Reports chest pain; Denies orthopnea, palpitations or racing heartbeat Respiratory/Chest Respiratory/Chest: Reports dyspnea; Denies cough, dyspnea on exertion, orthopnea or sputum Gastrointestinal Gastrointestinal: Denies abdominal pain, constipation, diarrhea, melena, nausea or vomiting Genitourinary Genitourinary ED: Denies dysuria, hematuria or urinary frequency Musculoskeletal Musculoskeletal: Denies arthralgias, myalgias or neck pain Integumentary Denies rash Neurologic Neurologic: Denies headache(s), paresthesias or weakness Psychiatric Psychiatric: Denies anxiety or depression Hematologic/Lymphatic Hematologic/Lymphatic: Denies easy bleeding or easy bruising Allergic/Immunologic Allergic/Immunologic ED: Denies mouth swelling or tongue swelling EXAM Physical Exam Const Vital Signs: 07/17/20 23:11 07/17/20 23:20 07/17/20 23:25 Temperature 98.2 F Temperature Source Temporal Pulse Rate 86 Respiratory Rate 19 H Respiratory Effort Normal Respiratory Pattern Normal Blood Pressure 134/64 H Blood Pressure Mean 87 Pulse Ox 98 Oxygen Delivery Method Room Air Room Air 07/18/20 00:11 07/18/20 01:00 07/18/20 02:29 Temperature Temperature Source Pulse Rate 80 76 77 Respiratory Rate 19 H 18 18 Respiratory Effort Respiratory Pattern Blood Pressure 103/68 104/57 L 99/58 L Blood Pressure Mean 79 72 71 Pulse Ox 98 99 95 Oxygen Delivery Method Room Air Room Air Room Air Positive well nourished and well developed General Appearance ED: well developed HEENT Reports TM's clear and moist mucous membranes normocephalic and atraumatic Tympanic Membrane ED: Yes TM's clear Eyes PERRL and EOMs intact bilaterally Neck no lymphadenopathy, supple and no JVD Chest Wall inspection of chest normal Resp normal respiratory effort and clear to auscultation bilaterally Cardio regular rate, S1 normal heart sound, S2 normal heart sound and no murmurs Peripheral Pulses: pulses 2+ throughout GI soft to palpation, non-tender and non-distended Back/Spine no CVA tenderness and no thoracic nor lumbar tenderness Extremity normal to inspection General Extremety ED: Negative for edema or tenderness General Extremity: Negative for edema Neuro oriented x3, CN's II-XII intact bilaterally and no sensory deficits noted Sensorium / Orientation: alert Motor Exam: strength 5/5 throughout Psych mental status grossly normal Skin no rashes or lesions noted MDM MDM MDM Narrative Medical decision making narrative: Patient appears well and nontoxic. Vital signs within normal limits. EKG nonischemic. Two troponin by 3 hours negative. Chest x-ray interpreted by myself shows no evidence of infiltrate or cardiomegaly. Radiology concurs. D-dimer negative. Unclear the cause of the patient's chest pain however patient is low risk for ACS and will be advised to follow-up with her primary care provider. Asked to return for new or worsening symptoms. Patient agreeable and discharged home in stable condition. Lab Data Attestation: I reviewed the patient's lab results. Labs: Laboratory Results - last 24 hr 07/17/20 07/17/20 07/17/20 23:20 23:20 23:20 WBC 7.9 RBC 4.00 L Hgb 11.6 L Hct 35.8 L MCV 89.5 MCH 29.0 MCHC 32.4 RDW Std Deviation 43.1 RDW Coeff of Luna 13.2 Plt Count 220 MPV 10.1 Immature Gran % (Auto) 0.300 Neut % (Auto) 57.5 Lymph % (Auto) 29.8 [place] % (Auto) 9.6 Eos % (Auto) 2.2 Baso % (Auto) 0.6 Absolute Neuts (auto) 4.5 Absolute Lymphs (auto) 2.35 Nucleated RBC % 0 D-Dimer Quant (PE/DVT) 0.42 Sodium 139 Potassium 3.9 Chloride 106 Carbon Dioxide 28.0 Anion Gap 5 BUN 13 Creatinine 0.91 Estim Creat Clear Calc 79.91 Est GFR (MDRD) Af Amer 88 Est GFR (MDRD) Non-Af 72 BUN/Creatinine Ratio 14.3 Glucose 99 Calcium 8.5 Troponin I < 0.015 07/18/20 02:10 WBC RBC Hgb Hct MCV MCH MCHC RDW Std Deviation RDW Coeff of Luna Plt Count MPV Immature Gran % (Auto) Neut % (Auto) Lymph % (Auto) [place] % (Auto) Eos % (Auto) Baso % (Auto) Absolute Neuts (auto) Absolute Lymphs (auto) Nucleated RBC % D-Dimer Quant (PE/DVT) Sodium Potassium Chloride Carbon Dioxide Anion Gap BUN Creatinine Estim Creat Clear Calc Est GFR (MDRD) Af Amer Est GFR (MDRD) Non-Af BUN/Creatinine Ratio Glucose Calcium Troponin I < 0.015 Radiography Chest X-Ray - ED: 1 View, Read by ED Physician, Read by Radiologist and Normal Diagnostic Testing: Radiology Impression Chest X-Ray 07/17/20 23:19 IMPRESSION: Negative chest radiograph. Electronically Signed: Rasta Mas MD at 0:20 EDT Tel , Service support , Rhythm Strip Rhythm Strip: Sinus Rhythm Rate: 77 Ectopy: None EKG Initial EKG: Attestation: I personally reviewed and interpreted this EKG as follows: Interpretation: Sinus Rhythm and No Acute Injury Pattern Comments: Normal sinus rhythm at 77 bpm. DC interval 158 ms. QTC of 416 ms. No acute ischemia. Discharge Plan Triage Chief Complaint: Chest Pain ED Provider: Babatunde Boothe Dx/Rx/DC Orders Clinical Impression: Chest pain Instructions: ED Chest Pain, Uncertain Cause Prescriptions: No Action cholecalciferol (vitamin D3) 3,000 unit tablet 3,000 unit tablet 6,000 unit PO DAILY RF: 0 omega-3 fatty acids [Fish Oil Concentrate] 1,000 mg capsule 1,000 mg PO DAILY RF: 0 vitamin B complex [B Complex-Vitamin B12] Tablet 1 tab PO DAILY RF: 0 Referrals: PHILLIP MENDEZ [Other] - 2 Days Disposition Disposition: Home, self care
[2020-07-17 23:30] LABS: Absolute Lymphocyte Count 2.35 X10^3/uL (0.83-4.51); Absolute Neutrophil Count 4.5 X10^3/uL (2.0-7.7); Basophil# 0.05 X10^3/uL; Basophil% 0.6 % (0-1); Eosinophil# 0.17 X10^3/uL; Eosinophils% 2.2 % (0-5); Hematocrit 35.8 % (37-47); Hemoglobin 11.6 g/dL (12.0-15.0); Lymphocyte # 2.35 X10^3/ul (0.83-4.51); Lymphocyte % 29.8 % (19-41); Mean Corp Hgb Conc 32.4 g/dL (32-36); Mean Corpuscular Volume 89.5 fL (81-99); Mean Platelet Vol. 10.1 fl (6.2-12.0); Monocyte# 0.76 X10^3/uL; Monocyte% 9.6 % (0-10); NRBC Flagged by Analyzer 0 % (0-5); Neutrophil # 4.53 X10^3/uL (2.7-7.7); Neutrophil % 57.5 % (47-70); Platelet Count 220 K/mm3 (150-450); RBC Distribution Width CV 13.2 % (11.6-14.6); RBC Distribution Width SD 43.1 fl (35.1-43.9); White Blood Count 7.9 K/mm3 (4.4-11.0)
[2020-07-17 23:42] LABS: D-Dimer Quantitative (DVT/PE) 0.42 FEU/ug/m (0.27-0.49)
[2020-07-17 23:48] LABS: Anion Gap 5 (5-15); BUN 13 mg/dL (7-18); BUN/Creat Ratio 14.3 RATIO (10-20); Calcium,Total 8.5 mg/dL (8.5-10.1); Chloride 106 mmol/L (98-107); Creatinine, Serum 0.91 mg/dL (0.55-1.02); EST Glomerular Filtration Rate 72 mL/min (>60); Est Glom Filt Rate - Afr Amer 88 mL/min (>60); Estimated Creatinine Clearance 79.91 ml/min; Glucose 99 mg/dL (74-106); Potassium 3.9 mmol/L (3.5-5.1); Sodium Level 139 mmol/L (136-145)
[2020-07-18 00:11] VITALS: BP 103/68; PULSE 80; RESP 19; O2SAT 98
[2020-07-18 01:00] VITALS: BP 104/57; PULSE 76; RESP 18; O2SAT 99
[2020-07-18 02:29] VITALS: BP 99/58; PULSE 77; RESP 18; O2SAT 95
[2020-07-18 02:55] VITALS: BP 108/65; PULSE 76; RESP 16
== END 2020-07-18 02:58 | disposition home or self-care (01) ==
PROVIDERS: Emergency Provider Emergency Medicine
DX: R07.9 Chest pain, unspecified (principal); M19.90 Unspecified osteoarthritis, unspecified site
CPT/HCPCS: 71045; 80048; 84484; 85025; 85379; 93005; 99284; A4216

== ENCOUNTER 2020-08-06 | Emergency (ER) | payer BC, SELFPAY ==
[2020-08-06 00:03] VITALS: BP 130/80; PULSE 75; RESP 18; TEMP 36.1; O2SAT 98; BMI 36.0
--- NOTE | 2020-08-06 00:21 | EX.ED.GENINJ ---
HPI History of Present Illness Chief Complaint: Laceration Informant: patient Narrative Narrative: 39-year-old female sustained a left forearm laceration while using a knife to clean her vacuum. Unknown last tetanus. PFSH PFSH Medical History Arthritis Chronic abdominal pain Fatigue History of ectopic Thyroid disorder Home Medications cholecalciferol (vitamin D3) 75 mcg (3,000 unit) tablet 6,000 unit PO DAILY tab 04/26/19 [History Last Taken Unknown] omega-3 fatty acids 1,000 mg capsule 1,000 mg PO DAILY 04/26/19 [History Last Taken Unknown] vitamin B complex 1 tab PO DAILY 04/26/19 [History Last Taken Unknown] Allergy/AdvReac Type Severity Reaction Status Date / Time hydrocodone AdvReac Vomiting Verified 08/06/20 00:05 Family History Brother High cholesterol Grandmother Asthma High cholesterol Thyroid disorder Surgical History delivery delivered H/O unilateral salpingectomy History of esophagogastroduodenoscopy (EGD) Hx of cholecystectomy Hx of colonoscopy Hx of unilateral salpingectomy Social History Smoking Status: Never smoker alcohol intake: never substance use type: does not use caffeine: No what type of physical activity do you participate in: walking seatbelt use: always do you feel safe at home: Yes 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 [employer] ED Constitutional Constitutional ED: Denies chills or weight loss Eyes Eyes: Denies change in vision or diplopia ENT ENT ED: Denies ear pain, rhinorrhea or sore throat Cardiovascular Cardiovascular: Denies chest pain, orthopnea, palpitations or racing heartbeat Respiratory/Chest Respiratory/Chest: Denies cough, dyspnea or orthopnea Gastrointestinal Gastrointestinal: Denies abdominal pain, diarrhea, nausea or vomiting Genitourinary Genitourinary ED: Denies dysuria, hematuria or urinary frequency Musculoskeletal Musculoskeletal: Denies arthralgias or myalgias Integumentary Reports other Details: Laceration ; Denies abscess or rash Neurologic Neurologic: Denies headache(s) or weakness Psychiatric Psychiatric: Denies anxiety, depression, suicidal ideation or suicidal thoughts Endocrine Endocrinology: Denies polydipsia, polyphagia or polyuria Allergic/Immunologic Allergic/Immunologic ED: Denies mouth swelling, tongue swelling or urticaria EXAM Physical Exam Const Vital Signs: 08/06/20 00:03 Temperature 97 F L Temperature Source Temporal Pulse Rate 75 Respiratory Rate 18 Blood Pressure 130/80 H Blood Pressure Mean 96 Pulse Ox 98 Oxygen Delivery Method Room Air Positive well nourished and well developed General Appearance ED: well developed HEENT Reports normocephalic, head/scalp atraumatic and moist mucous membranes Eyes PERRL and EOMs intact bilaterally Neck no lymphadenopathy, supple and no JVD Resp normal respiratory effort and clear to auscultation bilaterally Cardio regular rate, regular rhythm and no murmurs GI normal to inspection, nondistended, normoactive bowel sounds and non-tender Palpation: soft Back/Spine no CVA tenderness and normal ROM Extremity normal to inspection General Extremety ED: Negative for edema General Extremity: Negative for edema Neuro oriented x3 and CN's II-XII intact bilaterally Sensorium / Orientation: alert Motor Exam: strength 5/5 throughout Psych mental status grossly normal Mood & Affect: Negative for depressed or tearful Skin no rashes or lesions noted Skin Narrative: There is a 1 cm linear laceration of the left mid forearm. Neurovascular intact distal. No significant hematoma noted. Muscle function appears normal MDM MDM MDM Narrative Medical decision making narrative: 1% lidocaine was used to anesthetize the area locally. Is washed with Shur-Clens and explored. It was closed using a total of 3 simple erupted 4-0 Ethilon sutures. Bacitracin and Band-Aid applied. Patient will follow-up 7 to 10 days for suture removal Discharge Plan Triage Chief Complaint: Laceration ED Provider: Artis Shi Dx/Rx/DC Orders Clinical Impression: Laceration of forearm, left Instructions: ED Laceration: All Closures Prescriptions: No Action cholecalciferol (vitamin D3) 3,000 unit tablet 3,000 unit tablet 6,000 unit PO DAILY RF: 0 omega-3 fatty acids [Fish Oil Concentrate] 1,000 mg capsule 1,000 mg PO DAILY RF: 0 vitamin B complex [B Complex-Vitamin B12] Tablet 1 tab PO DAILY RF: 0 Primary Care Provider: Krissy Jones Referrals: Krissy Jones MD [Primary Care Provider] - 10 Day for suture removal Disposition Disposition: Home, Self Care
[2020-08-06] MEDS: Diphth,Pertuss(Acell),Tet Vac 0.5 ML Vial IM (00:24)
[2020-08-06] MEDS: Lidocaine 1% (20 ml mdv) 20 ML Vial INFILT (00:25)
== END 2020-08-06 00:46 | disposition home or self-care (01) ==
LOC: ED 00:26
PROVIDERS: Emergency Provider Emergency Medicine; PCP Family Medicine
DX: S51.812A Laceration without foreign body of left forearm, initial encounter (principal); M19.90 Unspecified osteoarthritis, unspecified site; W26.0XXA Contact with knife, initial encounter; Y93.89 Activity, other specified; Y92.009 Unspecified place in unspecified non-institutional (private) residence as the place of occurrence of the external cause; Y99.8 Other external cause status
CPT/HCPCS: 12001; 90471; 90715; 99283

== ENCOUNTER 2021-06-18 18:00 | Outpatient (RCR) | payer BC, SELFPAY ==
--- NOTE | 2021-05-25 14:45 | HP.PTEVAL ---
Patient's Visit Information MARY PAZ is a 40 year old F referred to Physical Therapy by MELISSA Cardona with a diagnosis of RIGHT SHOULDER SUBARCROMIAL IMPINGEMENT ,LBP/NECK PAIN ,B/L ITBAND,BURSITIS. Date of Evaluation: 05/25/21 Physical Therapist: Florian De Luna, PT, Cert MDT, OCS - Visit Plan Frequency: 2x /Week Duration: 4 Weeks Plan: PT INTERVETIONS MCHENZIE EX'S LUMBAR /CERVICAL ,DLS ,POSTURAL EX'S ,RTC/SCAPULAR STRENGTHENING ,IT BAND STICK FOAM ROLLING,HIP STRENGTHENING AND MODALTIES PRN - Subjective This 40 y/o female presents to physical therapy with right shoulder pain ,LBP,NECK PAIN and bursitis of hips. This Patient has had right shoulder pain for ~ 1 month ,did have h/o falling on ice . Patient pain is global . Aggravating factors overhead activities ,lifting., reaching behind back affects function and ADLS'. Alleviating factors rest . Dr prescribed prednisone and muscle relaxer. Initial went to [facility] for shoulder pain. Pain affects sleeping. C/O paresthesia /tingling in fingers . Patient has had LBP for ~ 16 years . Patient LBP is constant. Patient aggravating factors bending, lifting and sitting. Alleviating factors walking. Bowel/bladder -. Coughing/sneezing -. Location pain symmetrical and lateral hip pain. Patient has cervical pain occiput base of neck and c/o paresthesia in hands . Aggravating factors bending, lifting. Alleviating factors rest. Denies dizziness/nausea. C/O WATSON FRONTAL . These symptoms affects QOL and function with activities and daily function with house. 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 Patient goals to decrease symptoms. Patient lateral hips become agitated when laying on hips. SOCAIL; . VOCATION: - Pain Right Shoulder Pain Intensity (Out of 10): 4 Pain Intensity Range: 10 Bilateral Back Pain Intensity (Out of 10): 4 Pain Intensity Range: 10 Bilateral Neck Pain Intensity (Out of 10): 2 Pain Intensity Range: 10 Bilateral Hip Pain Intensity (Out of 10): 3 Pain Intensity Range: 10 - Objective POSTURE: mild forward shoulders. PALAPTION: tender greater trochanter , I-BAND ,. NEURO: c/o paresthesia/tingling thumb region ,reflexes C5-6-7 2/3 ,L3-4,L4-5,L5-S1 2/3,. AROM: shoulder flexion 160 degrees ,abduction 160 degrees ,ER 90 degrees, IR L5. LUMBAR ROM: flexion mod loss ,extension mod loss, side glides min loss. FLEXABLITY: hamstrings mod tight, IT BAND mild tight. CERVICAL ROM: flexion/extension/rotation/lateral flexion min loss. MMT: RTC/DELTOID 4/5. QUADS/HAMS /HIP 4/5 - Special Tests C/S Radiculapathy - Left Upper limb tension test: Negative C/S Radiculapathy - Right Upper limb tension test: Negative C/S Radiculapathy - Left Spurlings: Negative C/S Radiculapathy - Right Spurlings: Negative C/S Radiculapathy - Left Cervical distraction: Negative C/S Radiculapathy - Right Cervical distraction: Negative Sharp Melissa: Negative Vertebral Artery Test: Negative Alar Ligament Test: Negative Cervical Sitting: Protrusion - Mechanical Response: Increases motion Cervical Sitting: Protrusion - Symptoms During Testing: Increases Cervical Sitting: Protrusion - Symptoms After Testing: Worse Cervical Sitting: Retraction - Mechanical Response: No effect Cervical Sitting: Retraction - Symptoms During Testing: No effect Cervical Sitting: Retraction - Symptoms After Testing: No effect Cervical Sitting: Retraction-Extension - Mechanical Response: No effect Cerv Sitting: Retraction-Extension - Symptoms During Testing: No effect Cerv Sitting: Retraction-Extension - Symptoms After Testing: No effect Cervical Sitting: Sidebend Right - Mechanical Response: No effect Cervical Sitting: Sidebend Right - Symptoms During Testing: No effect Cervical Sitting: Sidebend Right - Symptoms After Testing: No effect Cervical Sitting: Sidebend Left - Mechanical Response: No effect Cervical Sitting: Sidebend Left - Symptoms During Testing: No effect Cervical Sitting: Sidebend Left - Symptoms After Testing: No effect Cervical Sitting: Rotation Right - Mechanical Response: No effect Cervical Sitting: Rotation Right - Symptoms During Testing: No effect Cervical Sitting: Rotation Right - Symptoms After Testing: No effect Cervical Sitting: Rotation Left - Mechanical Response: No effect Cervical Sitting: Rotation Left - Symptoms During Testing: No effect Cervical Sitting: Flexion - Mechanical Response: No effect Cervical Sitting: Flexion - Symptoms During Testing: Increases Cervical Sitting: Flexion - Symptoms After Testing: Worse Comments:: TINGLING FINGER L/S Slump test left side: Negative L/S Slump test right side: Negative L/S Left Straight Leg Raise: Negative L/S Right Straight Leg Raise: Negative Lumbar Standing: Flexion - Mechanical Response: No effect Lumbar Standing: Flexion - Symptoms During Testing: Increases Lumbar Standing: Flexion - Symptoms After Testing: Worse Lumbar Standing: Extension - Mechanical Response: No effect Lumbar Standing: Extension - Symptoms During Testing: Increases Lumbar Standing: Right Side Glides - Mechanical Response: No effect Lumbar Standing: Right Side Dalzell - Symptoms During Testing: No effect Lumbar Standing: Right Side Dalzell - Symptoms After Testing: No effect Lumbar Standing: Left Side Dalzell - Mechanical Response: No effect Lumbar Standing: Left Side Dalzell - Symptoms During Testing: No effect Lumbar Standing: Left Side Dalzell - Symptoms After Testing: No effect Lumbar Lying: Flexion - Mechanical Response: No effect Lumbar Lying: Flexion - Symptoms During Testing: Increases Lumbar Lying: Flexion - Symptoms After Testing: Worse Lumbar Lying: Extension - Mechanical Response: No effect Lumbar Lying: Extension - Symptoms During Testing: Decreases Lumbar Lying: Extension - Symptoms After Testing: Better R Hip Scour: Negative R Hip Quadrant - Intraarticular Pathology: Negative R Hip Lyudmila - IT Band: Positive L Hip Scour: Negative L Hip Quadrant - Intraarticular Pathology: Negative L Hip Lyudmila - IT Band: Positive - Goals Goal 1:: I with HEP for lumbar /neck/hips/shoulder Goal Time Frame: 4-6 Weeks Goal 2:: Patient to demonstrate 50 % improvement with decrease pain shoulder /back/neck/hips an improve function Goal Time Frame: 4-6 Weeks Goal 3:: Patient to to be able to use right UE with all functional activities with no limitations. Goal Time Frame: 4-6 Weeks Goal 4:: Patient to improve lumbar ROM for function of recovery to perform housework task Goal Time Frame: 4-6 Weeks Goal 5:: Patient to improve IT band pain so patient can lay on sidxe Goal Time Frame: 4-6 Weeks Goal 6:: Patient to improve quick dash by 5 points to improve QOL and function - Rehabilitation Potential Physical Therapy Diagnosis: This pain has multiple issues with right shoulder pain ,greater trochanteric bursitis /IT-BAND syndrome bilateral, derangement lumbar and cervical pain with decrease ROM ,pain with positioning lumbar ,very tender IT band ,greater trochanter bursitis along with core weakness and postural control control and pain right shoulder tendonitis Rehabilitation Potential: Good - Anticipated Interventions Patient/Client Instruction: Educate patient on: Condition, Plan of Care For the Purpose of:: To decrease pain, To increase ROM, To improve muscle performance and motor function, To improve ability to perform ADL's, To increase tolerance to activity/condition/position, To improve performance and independence with ADL's, To improve ability of physical actions for home/community/work/leisure, To increase flexibility/ROM, To prevent re-injury Therapeutic Exercise to Include: Strength training, Endurance training, Body mechanics, Postural training, Flexibilty training, Active ROM, Dynamic Lumbar Stabilization, Mara Exercises Comment: RTC,HIP For the Purpose of:: To decrease pain, To increase ROM, To improve muscle performance and motor function, To improve ability to perform ADL's, To increase tolerance to activity/condition/position, To improve performance and independence with ADL's, To improve ability of physical actions for home/community/work/leisure, To improve health of tissue, To decrease soft tissue restriction, To increase flexibility/ROM TENS: Yes IF ES: Yes Cryotherapy (ice pack, ice massage): Yes Thermo therapy (hot pack): Yes Ultrasound (thermal/non thermal): Yes For the Purpose of:: To decrease pain, To increase ROM, To improve nutrient delivery to tissue, To increase oxygenation perfusion Thank you for the opportunity to evaluate your patient. For Medicare and Medicare HMO plans, please review the plan of care and approve it. It will need to be FAXED BACK to us at [phone] for Medicare purposes. For Medicare only, by signing this I certify the plan of care. Please let me know if there are questions or concerns regarding this plan of care. Physician Signature: Date:
--- NOTE | 2021-11-18 09:12 | HP.PT.NRP ---
MARY PAZ was seen in my office for initial evaluation on 05/25/21. The following Plan of Care was established for this patient: Initial Frequency: 2x /Week Initial Duration: 4 Weeks Patient/Client Instruction: Educate patient on: Condition, Plan of Care For the Purpose of:: To decrease pain, To increase ROM, To improve muscle performance and motor function, To improve ability to perform ADL's, To increase tolerance to activity/condition/position, To improve performance and independence with ADL's, To improve ability of physical actions for home/community/work/leisure, To increase flexibility/ROM, To prevent re-injury Therapeutic Exercise to Include: Strength training, Endurance training, Body mechanics, Postural training, Flexibilty training, Active ROM, Dynamic Lumbar Stabilization, Mara Exercises For the Purpose of:: To decrease pain, To increase ROM, To improve muscle performance and motor function, To improve ability to perform ADL's, To increase tolerance to activity/condition/position, To improve performance and independence with ADL's, To improve ability of physical actions for home/community/work/leisure, To improve health of tissue, To decrease soft tissue restriction, To increase flexibility/ROM TENS: Yes IF ES: Yes Cryotherapy (ice pack, ice massage): Yes Thermo therapy (hot pack): Yes Ultrasound (thermal/non thermal): Yes For the Purpose of:: To decrease pain, To increase ROM, To improve nutrient delivery to tissue, To increase oxygenation perfusion This patient was last seen in our office . Pertinent comments regarding their Physical therapy will appear below: Patient was seen for PT for shoulder and lumbar for DLS ,ROM and strengthening and HEP thus is d/c from PT At this point I will be discontinuing this patient from physical therapy. I would be happy to see this patient again in the future if found appropriate by the physician. Thank you! Florian De Luna, PT, Cert MDT, OCS Balance/Gait/Functional tests - Balance/Special Test Scores Quick DASH Score: [phone]
== END 2021-06-18 19:00 | disposition home or self-care (01) ==
LOC: PT 18:00
PROVIDERS: PCP Family Medicine
DX: M75.41 Impingement syndrome of right shoulder (principal); M70.61 Trochanteric bursitis, right hip; M70.62 Trochanteric bursitis, left hip; M54.50 Low back pain, unspecified; M54.2 Cervicalgia
CPT/HCPCS: 97014; 97110; 97140; 97162; G0283

== ENCOUNTER → 2021-12-23 | Outpatient (CLI) | payer BC, SELFPAY ==
--- NOTE | 2021-12-23 07:37 | BI_ITS ---
MAMMOGRAPHY - BILATERAL SCREENING REASON FOR EXAM: Female, 41 years old. Routine annual screening examination. PERTINENT HISTORY: Non-contributory. TECHNIQUE: Digital bilateral breast byron (3D mammographic acquisition) in the CC and MLO projections. 2-D mediolateral oblique (MLO) and craniocaudad (CC) views of both breasts were obtained. CAD: Full Field Digital Mammography with Computer Added Detection was performed. COMPARISON: None. Baseline examination. FINDINGS: Breast Composition: There are scattered areas of fibroglandular density. There are no dominant masses or suspicious calcifications. No other significant abnormalities are identified. BI/SCRN MAMM (CAD)W/BYRON BILAT IMPRESSION: Negative screening mammogram. Yearly followup mammogram recommended. (A) ASSESSMENT CATEGORY: BIRADS Category 1: Negative. A letter regarding these results will be sent to the patient by the facility within 30 days. Approximately 10% of breast cancers are not detected by mammography. A normal mammogram should not delay biopsy of a clinically suspicious abnormality. [id number] Electronically Signed: Brad Brown MD at 9:01 EST ,
--- NOTE | 2021-12-23 07:37 | US_ITS ---
STUDY: ULTRASOUND OF THE FEMALE PELVIS - COMPLETE REASON FOR EXAM: Female, 41 years old. Irregular menses LMP: 12/02/2021. TECHNIQUE: Transabdominal and Transvaginal TECHNICAL QUALITY: Adequate. COMPARISON: None. FINDINGS: The uterus is anteverted and is in a midline position. The uterus measures 10 cm x 6 cm x 4.4 cm. There is a Nabothian cyst of the cervix. The endometrium measures 8.0 mm in thickness, and is heterogeneous (striated). There is no demonstrated endometrial mass. There is no demonstrated myometrial mass. I.U.D. - The patient does not have an I.U.D. The right ovary is visualized. The right ovary measures 2.3 cm x 3 cm x 1.6 cm. There is no right ovarian cyst or ovarian mass. There is no visualized right adnexal mass or complex lesion. There is normal arterial and normal venous vascularity. The left ovary is visualized. The left ovary measures 3 cm x 2.8 cm x 1.4 cm. There is no left ovarian cyst or ovarian mass. There is no visualized left adnexal mass or complex lesion. There is normal arterial and normal venous vascularity. There is no fluid in the cul-de-sac. The pre void volume of the bladder was 202 ml. US/Transvaginal Non- IMPRESSION: Normal female pelvis. Electronically Signed: Brad Brown MD at 9:48 EST ,
--- NOTE | 2021-12-23 07:37 | US_ITS ---
STUDY: ULTRASOUND OF THE FEMALE PELVIS - COMPLETE REASON FOR EXAM: Female, 41 years old. Irregular menses LMP: 12/02/2021. TECHNIQUE: Transabdominal and Transvaginal TECHNICAL QUALITY: Adequate. COMPARISON: None. FINDINGS: The uterus is anteverted and is in a midline position. The uterus measures 10 cm x 6 cm x 4.4 cm. There is a Nabothian cyst of the cervix. The endometrium measures 8.0 mm in thickness, and is heterogeneous (striated). There is no demonstrated endometrial mass. There is no demonstrated myometrial mass. I.U.D. - The patient does not have an I.U.D. The right ovary is visualized. The right ovary measures 2.3 cm x 3 cm x 1.6 cm. There is no right ovarian cyst or ovarian mass. There is no visualized right adnexal mass or complex lesion. There is normal arterial and normal venous vascularity. The left ovary is visualized. The left ovary measures 3 cm x 2.8 cm x 1.4 cm. There is no left ovarian cyst or ovarian mass. There is no visualized left adnexal mass or complex lesion. There is normal arterial and normal venous vascularity. There is no fluid in the cul-de-sac. The pre void volume of the bladder was 202 ml. US/Pelvic (Non ) IMPRESSION: Normal female pelvis. Electronically Signed: Brad Brown MD at 9:48 EST ,
== END | disposition home or self-care (01) ==
LOC: OPUS 07:36
PROVIDERS: PCP Family Medicine; Visit Provider Nurse Practitioner Women's Health
DX: Z12.31 Encounter for screening mammogram for malignant neoplasm of breast (principal); N92.0 Excessive and frequent menstruation with regular cycle
CPT/HCPCS: 76830; 76856; 77063; 77067

== ENCOUNTER 2022-02-08 17:08 | Emergency (ER) | payer BC, SELFPAY ==
[2022-02-08 17:10] VITALS: BP 131/82; PULSE 91; RESP 14; TEMP 36.6; O2SAT 97; BMI 37.5
--- NOTE | 2022-02-08 19:15 | CT_ITS ---
STUDY: CT BRAIN WITHOUT CONTRAST REASON FOR EXAM: Female, 41 years old. Pain. Headache behind the right eye. Nausea. RADIATION DOSAGE (If Supplied By Facility): CTDIvol = ( 44.99 ) mGy, DLP = ( 829.85 ) mGycm TECHNIQUE: Transaxial CT imaging of the brain was performed without administration of intravenous contrast material. Individualized dose optimization techniques were used for this CT. COMPARISON: No relevant priors. FINDINGS: Normal soft tissue structures. Normal calvarium. Normal size ventricles and extra-axial spaces for the patient''s age. Normal white matter tracts of the cerebral hemispheres. Normal basal ganglia and thalami. Normal brainstem. Normal cerebellum. There is no intracranial hemorrhage. There are no findings of an acute ischemic infarction. Normal visualized paranasal sinuses. CT/Brain/Head without Contrast IMPRESSION: Normal unenhanced CT scan of the brain. Electronically Signed: Krish Harrington DO at 19:55 EST ,
--- NOTE | 2022-02-08 19:15 | EX.ED.VIS.HA ---
HPI History of Present Illness Chief Complaint: Headache Narrative Narrative: 41-year-old female presenting with headache. She states she feels like it is right-sided and behind her right eye. She states that this began last night and she initially describes having chills and shakes. She states that she did not have a fever. This morning she woke up and her headache had returned. She took ibuprofen which did help the headache a little bit. She feels nauseous but is not vomiting. She does not see halos around light. No visual complaints. No slurred speech, paresthesias. She can move all 4 extremities. No history of migraine headache. She does complains of photophobia and phonophobia. No sick contacts at home. No cough or shortness of breath. PFSH PFS Medical History Arthritis Back pain Cervical strain Chronic abdominal pain Fatigue History of ectopic Lumbar strain Paresthesia and pain of both upper extremities Right leg paresthesias Right shoulder strain Thoracic myofascial strain Thyroid disorder Wry neck Home Medications sertraline 25 mg tablet 25 mg PO DAILY 02/08/22 [History Last Taken Unknown] Allergy/AdvReac Type Severity Reaction Status Date / Time hydrocodone AdvReac Vomiting Verified 02/08/22 17:10 Family History Brother High cholesterol Grandmother Asthma High cholesterol Thyroid disorder Surgical History delivery delivered H/O unilateral salpingectomy History of esophagogastroduodenoscopy (EGD) Hx of cholecystectomy Hx of colonoscopy Hx of unilateral salpingectomy Social History Smoking Status: Never smoker alcohol intake: never substance use type: does not use caffeine: No what type of physical activity do you participate in: walking seatbelt use: always do you feel safe at home: Yes additional social history: 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 [employer] ROS ED Constitutional Constitutional ED: Denies chills or fever(s) Eyes Eyes: Denies change in vision or diplopia ENT ENT ED: Denies rhinorrhea or sore throat Cardiovascular Cardiovascular: Denies chest pain or palpitations Respiratory/Chest Respiratory/Chest: Denies cough or dyspnea Gastrointestinal Gastrointestinal: Reports nausea; Denies abdominal pain or vomiting Genitourinary Genitourinary ED: Denies dysuria or hematuria Musculoskeletal Musculoskeletal: Denies arthralgias Integumentary Denies abscess Neurologic Neurologic: Reports headache(s); Denies paresthesias Psychiatric Psychiatric: Denies anxiety or depression EXAM Physical Exam Const Vital Signs: 02/08/22 17:10 Temperature 98 F Temperature Source Temporal Pulse Rate 91 Respiratory Rate 14 Blood Pressure 131/82 H Blood Pressure Mean 98 Pulse Ox 97 Oxygen Delivery Method Room Air Positive well nourished General Appearance ED: NAD; Negative for pallor HEENT Reports normocephalic atraumatic Eyes PERRL and EOMs intact bilaterally Neck no lymphadenopathy, supple and no meningeal signs Resp normal respiratory effort Effort and Inspection: Negative for retractions Cardio regular rate and regular rhythm GI non-tender Auscultation: normoactive bowel sounds Back/Spine no CVA tenderness Neuro oriented x3 and CN's II-XII intact bilaterally Sensorium / Orientation: awake and alert Psych mental status grossly normal Skin General Skin Exam: Negative for jaundice or pallor MDM MDM MDM Narrative Medical decision making narrative: Patient presenting with headache. She states that last night she had chills and shakes. She has not had a fever. No neck pain or stiffness. No history of head trauma. She has mild nausea. No history of migraines. Patient medicated with Reglan, Benadryl, IV fluids. We will obtain a CT brain and basic lab work. Patient has no concern for due to bilateral salpingectomy. She does not want to be tested for COVID or influenza. CBC and BMP are unremarkable. CT brain negative. Patient given dose of Toradol IV. On reevaluation at 9:21 PM she is feeling improved. She feels like she can be discharged home at this point. I recommend she follow-up with her PCP. Discharged stable condition. Impression: 1. Headache Lab Data Attestation: I reviewed the patient's lab results. Labs: Laboratory Results - last 24 hr 02/08/22 02/08/22 19:30 19:30 WBC 6.5 RBC 4.09 L Hgb 11.8 L Hct 36.9 L MCV 90.2 MCH 28.9 MCHC 32.0 RDW Std Deviation 42.6 RDW Coeff of Luna 13.0 Plt Count 197 MPV 10.2 Immature Gran % (Auto) 0.200 Neut % (Auto) 55.9 Lymph % (Auto) 32.5 Garrett % (Auto) 9.4 Eos % (Auto) 1.5 Baso % (Auto) 0.5 Absolute Neuts (auto) 3.7 Absolute Lymphs (auto) 2.12 Nucleated RBC % 0 Sodium 140 Potassium 3.7 Chloride 107 Carbon Dioxide 28.0 Anion Gap 5 BUN 10 Creatinine 0.81 Estim Creat Clear Calc 87.98 Est GFR (MDRD) Af Amer 100 Est GFR (MDRD) Non-Af 82 BUN/Creatinine Ratio 12.4 Glucose 99 Calcium 8.7 Radiography Diagnostic Testing: Clinical Impression(s) from Imaging Studies Brain CT 02/08/22 19:15 IMPRESSION: Normal unenhanced CT scan of the brain. Electronically Signed: Krish Harrington DO at 19:55 EST Reading Location ID and State: [address] [place] [address] Tel [phone], Service support , Discharge Plan Triage Chief Complaint: Headache ED Provider: Luis Hidalgo Dx/Rx/DC Orders Instructions: ED Headache Unspecified Prescriptions: No Action sertraline 25 mg tablet 25 mg PO DAILY Label Comments: TAKE 1 TABLET BY MOUTH EVERY DAY IN THE MORNING Primary Care Provider: Krissy Jones Referrals: Krissy Jones MD [Primary Care Provider] - Disposition Disposition: Home, Self Care
[2022-02-08] MEDS: Metoclopramide 10 MG/2 ML Vial IV (19:27)
[2022-02-08] MEDS: 0.9% Normal Saline 1,000 ML 999 ML IV (19:27)
[2022-02-08] MEDS: DiphenhydrAMINE 50 MG/ML Syringe 25 MG IV (19:27)
[2022-02-08 19:57] LABS: Absolute Lymphocyte Count 2.12 X10^3/uL (0.83-4.51); Absolute Neutrophil Count 3.7 X10^3/uL (2.0-7.7); Basophil# 0.03 X10^3/uL; Basophil% 0.5 % (0-1); Eosinophils% 1.5 % (0-5); Hematocrit 36.9 % (37-47); Hemoglobin 11.8 g/dL (12.0-15.0); Lymphocyte # 2.12 X10^3/ul (0.83-4.51); Lymphocyte % 32.5 % (19-41); Mean Corpuscular Hgb 28.9 pg (27.0-32.0); Mean Corpuscular Volume 90.2 fL (81-99); Mean Platelet Vol. 10.2 fl (6.2-12.0); Monocyte# 0.61 X10^3/uL; Monocyte% 9.4 % (0-10); NRBC Flagged by Analyzer 0 % (0-5); Neutrophil # 3.65 X10^3/uL (2.7-7.7); Neutrophil % 55.9 % (47-70); Platelet Count 197 K/mm3 (150-450); RBC Distribution Width SD 42.6 fl (35.1-43.9); Red Blood Count 4.09 M/mm3 (4.2-5.4); White Blood Count 6.5 K/mm3 (4.4-11.0)
[2022-02-08] MEDS: Ketorolac 15 MG/ML Vial IV (20:15)
[2022-02-08 20:23] LABS: Anion Gap 5 (5-15); BUN 10 mg/dL (7-18); BUN/Creat Ratio 12.4 RATIO (10-20); Calcium,Total 8.7 mg/dL (8.5-10.1); Chloride 107 mmol/L (98-107); Creatinine, Serum 0.81 mg/dL (0.55-1.02); EST Glomerular Filtration Rate 82 mL/min (>60); Est Glom Filt Rate - Afr Amer 100 mL/min (>60); Estimated Creatinine Clearance 87.98 ml/min; Glucose 99 mg/dL (74-106); Potassium 3.7 mmol/L (3.5-5.1); Sodium Level 140 mmol/L (136-145)
== END 2022-02-08 21:29 | disposition home or self-care (01) ==
PROVIDERS: Emergency Provider Student in an Organized Health Care Education/Training Program; PCP Family Medicine; Visit Provider Student in an Organized Health Care Education/Training Program
DX: R51.9 Headache, unspecified (principal); R11.0 Nausea
CPT/HCPCS: 70450; 80048; 85025; 96361; 96374; 96375; 99284; J7030; A4216

== ENCOUNTER → 2023-06-06 | Outpatient (CLI) | payer BC, SELFPAY ==
--- NOTE | 2023-06-06 09:25 | RAD_ITS ---
STUDY: X-RAY - RIGHT SHOULDER REASON FOR EXAM: Female, 42 years old. Injury TECHNIQUE: 4 view(s) of the shoulder. COMPARISON: Comparison is made with prior study dated May 14, 2021. FINDINGS: Normal glenohumeral articulation. Normal acromioclavicular joint. Normal acromion. Normal humeral head and visualized proximal humerus. The soft tissue structures are unremarkable. Normal visualized pulmonary apex. RAD/Shoulder min 2 Views IMPRESSION: Normal x-ray examination of the shoulder. Electronically Signed: Brad Brown MD at 10:03 EDT ,
== END | disposition home or self-care (01) ==
LOC: MTRAD 09:25
PROVIDERS: PCP Family Medicine; Referring Provider Physician Assistant; Visit Provider Physician Assistant
DX: T14.90XA Injury, unspecified, initial encounter (principal); X58.XXXA Exposure to other specified factors, initial encounter
CPT/HCPCS: 73030

== ENCOUNTER → 2023-09-26 | Outpatient (CLI) | payer BC, SELFPAY ==
--- NOTE | 2023-09-26 12:48 | RAD_ITS ---
STUDY: X-RAY - RIGHT ANKLE REASON FOR EXAM: Female, 42 years old. Sprain TECHNIQUE: 3 view(s) of the ankle. COMPARISON: None. FINDINGS: Normal visualized distal tibia and fibula. Normal medial and lateral malleoli. Normal tibiotalar articulation and ankle mortise. Normal visualized talus and calcaneus. The visualized subtalar, talonavicular, calcaneocuboid and tarsal articulations are normal. The soft tissue structures are unremarkable. RAD/Ankle min 3 Views IMPRESSION: Normal x-ray examination of the ankle. Electronically Signed: Brad Brown MD at 13:36 EDT ,
== END | disposition home or self-care (01) ==
PROVIDERS: PCP Nurse Practitioner Family; Referring Provider Physician Assistant; Visit Provider Physician Assistant
DX: T14.8XXA Other injury of unspecified body region, initial encounter (principal); X58.XXXA Exposure to other specified factors, initial encounter
CPT/HCPCS: 73610

== ENCOUNTER 2024-05-04 00:09 | Emergency (ER) | payer BC, SELFPAY ==
[2024-05-04 00:12] VITALS: BP 146/93; PULSE 82; RESP 18; TEMP 36.4; O2SAT 98; BMI 39.4
--- NOTE | 2024-05-04 00:20 | RAD_ITS ---
PROCEDURE: CHEST 1 VIEW (PORTABLE) 05/04/2024 REASON FOR EXAM: CHEST PAIN TECHNIQUE: Frontal view of the chest. COMPARISON: Chest radiograph dated 07/17/2020. FINDINGS: Hardware: Heart: The heart size is normal. Lungs: The lungs are clear. Bones: The bones are unremarkable. Other: RAD/Chest 1 View (Portable) IMPRESSION: No Acute Findings. Reading Location: [facility]
--- NOTE | 2024-05-04 00:20 | EKG12_ITS ---
Test Reason : CP Blood Pressure : */* mmHG Vent. Rate : 77 BPM Atrial Rate : 77 BPM P-R Int : 178 ms QRS Dur : 86 ms QT Int : 378 ms P-R-T Axes : 43 -4 17 degrees QTcB Int : 427 ms Normal sinus rhythm Normal ECG Confirmed by TONNY BARRERA, ELIZABETH ([id number]), editor school photograph LEIGHTON SORIA ([id number]) on 05/04/2024 8:10:16 AM Referred By: LEI Confirmed By: ELIZABETH LANCASTER MD
[2024-05-04] MEDS: Aspirin 81 MG TAB.CHEW 324 MG PO (00:25)
[2024-05-04 00:26] VITALS: O2SAT 96
[2024-05-04 00:30] LABS: Absolute Lymphocyte Count 2.93 X10^3/uL (0.83-4.51); Basophil# 0.05 X10^3/uL; Basophil% 0.6 % (0-1); Eosinophil# 0.17 X10^3/uL; Eosinophils% 2.2 % (0-5); Hematocrit 36.8 % (37-47); Hemoglobin 12.5 g/dL (12.0-15.0); Lymphocyte # 2.93 X10^3/ul (0.83-4.51); Lymphocyte % 37.3 % (19-41); Mean Corpuscular Hgb 30.3 pg (27.0-32.0); Mean Corpuscular Volume 89.3 fL (81-99); Monocyte# 0.68 X10^3/uL; Monocyte% 8.7 % (0-10); NRBC Flagged by Analyzer 0 % (0-5); Neutrophil # 4.01 X10^3/uL (2.7-7.7); Neutrophil % 50.9 % (47-70); Platelet Count 231 K/mm3 (150-450); RBC Distribution Width CV 12.6 % (11.6-14.6); RBC Distribution Width SD 41.6 fl (35.1-43.9); Red Blood Count 4.12 M/mm3 (4.2-5.4); White Blood Count 7.9 K/mm3 (4.4-11.0)
[2024-05-04 00:43] LABS: Internal QC Validated? YES +Cl - CLEAR BKGD; Pregnancy, Serum, hCG Quali. NEGATIVE Negative
[2024-05-04 00:44] LABS: Anion Gap 11 (5-15); BUN 9 mg/dL (4-19); BUN/Creat Ratio 14.3 RATIO (10-20); Carbon Dioxide 23.3 mmol/L (21.0-32.0); Chloride 104 mmol/L (98-108); Creatinine, Serum 0.65 mg/dL (0.70-1.20); D-Dimer Quantitative (DVT/PE) < 0.27 FEU/ug/m (0.27-0.49); EST Glomerular Filtration Rate 111 (>60); Estimated Creatinine Clearance 144.09 ml/min (50-250); Glucose 109 mg/dL (70-99); Potassium 3.9 mmol/L (3.3-5.1); Sodium Level 138 mmol/L (133-145); Troponin T High Sensitivity < 6 ng/L (<=14)
--- NOTE | 2024-05-04 00:48 | ED.VIS.CHEST ---
HPI History of Present Illness Chief Complaint: Chest Pain Narrative Narrative: Chief complaint and HPI: Chest pressure. 43-year-old female with current workup for IIH presents for evaluation of chest pressure. She describes the chest pressure as heaviness. Onset was an hour prior to arrival. States it woke her up from sleep. Does not radiate down the arm into the neck or the jaw. She denies any nausea, vomiting, diaphoresis, syncope, shortness of breath. Triage notes per nursing states that it is causing dizziness however patient denies any dizziness or lightheadedness to me. Patient states that she suffers from headaches in which she saw a neurologist and is having workup for IIH She states she had a spinal tap performed and her opening pressure was borderline so they are unsure. She states she is on Topamax. She states that she is not taking Topamax about a week ago as she is worried about the side effects. She states she is going to talk to her neurologist about this. She denies any headache, numbness/tingling, vision changes, neurological deficits currently. Denies a history of DVT/PE, blood clotting disorder, exogenous estrogen use, unilateral leg swelling, known malignancy, travel. Review of systems: See HPI Chief complaint and HPI: Review of systems: See HPI Medications: As listed on the chart Allergies: As listed on the chart PFSH: Per chart Vital signs: As listed on the chart. Reviewed. Physical exam: Gen: A&O x3, NAD Head: Normocephalic, atraumatic Eyes: No sclera icterus, conjunctiva clear, PERRL, EOMI ENT: Moist mucous membranes Neck: Trachea midline, No JVD CV: RRR, no murmurs, no peripheral edema Resp: Lungs CTA BL, no w/r/c GI: Abd soft, non-distended, non-tender, no r/r/g Musc: Full ROM, no deformity Skin: Warm, dry Neuro: Alert, oriented, grossly intact, sensation intact Psych: Cooperative, appropriate mood and affect [facility] Medical History (Updated 05/04/24 @ 01:[address] Daniel Tinajero, DO) Sleep apnea in adult Acute maxillary sinusitis, unspecified Right ankle sprain Wry neck Right leg paresthesias Paresthesia and pain of both upper extremities Right shoulder strain Lumbar strain Thoracic myofascial strain Cervical strain Back pain Arthritis Fatigue Chronic abdominal pain History of ectopic Thyroid disorder Home Medications ?Medication ?Instructions ?Recorded ?Last Taken ?Type topiramate 50 mg tablet 50 mg PO QHS 05/04/24 Unknown History Allergy/AdvReac Type Severity Reaction Status Date / Time azithromycin (From z pack) Allergy Mild Other Verified 05/04/24 00:11 hydrocodone AdvReac Vomiting Verified 05/04/24 00:11 Family History Brother High cholesterol Grandmother Asthma High cholesterol Thyroid disorder Surgical History Hx of colonoscopy History of esophagogastroduodenoscopy (EGD) Hx of unilateral salpingectomy H/O unilateral salpingectomy Hx of cholecystectomy delivery delivered Social History Smoking Status: Never smoker alcohol intake: never substance use type: does not use caffeine: No what type of physical activity do you participate in: walking seatbelt use: always do you feel safe at home: Yes additional social history: [employer] at [employer] Physical Exam Const Vital Signs: 05/04/24 00:12 05/04/24 00:15 05/04/24 00:26 Temperature 97.6 F L Temperature Source Oral Pulse Rate 82 Respiratory Rate 18 Respiratory Effort Normal Non-Labored Respiratory Pattern Normal Blood Pressure 146/93 H Blood Pressure Mean 110 Pulse Ox 98 96 Oxygen Delivery Method Room Air Room Air 05/04/24 01:11 05/04/24 02:00 Temperature Temperature Source Pulse Rate 88 86 Respiratory Rate 19 H 16 Respiratory Effort Respiratory Pattern Blood Pressure 111/67 119/76 Blood Pressure Mean 81 90 Pulse Ox 95 98 Oxygen Delivery Method Room Air Room Air MDM MDM MDM Narrative Medical decision making narrative: 43-year-old female with current workup for IIH presents for evaluation of chest pressure. Describes it as heaviness. Onset an hour prior to arrival. Differential diagnosis includes but is not limited to musculoskeletal strain, arrhythmia, electrolyte abnormality, PE, ACS. Aspirin ordered for symptoms. Cardiac workup ordered. EKG and chest x-ray reviewed see below. CBC without leukocytosis or anemia. D-dimer unremarkable. BMP unremarkable. negative. Troponin negative x 2. Patient's heart score is a 1 due to chest heaviness. This makes her low risk for ACS. Low suspicion for ACS. On reexamination, patient's heaviness has improved. Patient was updated of all the results. Patient stable to discharge home. Follow-up with PCP. Return precautions explained. She agreed understand the plan. EKG: Interpreted by me/EM physician: EKG shows normal sinus rhythm with a heart rate of 77. No acute ischemic changes Diagnostic: Interpreted by me/EM physician: Chest x-ray without pneumonia, effusion, cardiomegaly, pneumothorax Impression: 1. Chest heaviness, unknown etiology Lab Data Labs: Laboratory Results - last 24 hr 05/04/24 05/04/24 00:15 02:15 WBC 7.9 RBC 4.12 L Hgb 12.5 Hct 36.8 L MCV 89.3 MCH 30.3 MCHC 34.0 RDW Std Deviation 41.6 RDW Coeff of Luna 12.6 Plt Count 231 MPV 10.0 Immature Gran % (Auto) 0.300 Neut % (Auto) 50.9 Lymph % (Auto) 37.3 Ballard % (Auto) 8.7 Eos % (Auto) 2.2 Baso % (Auto) 0.6 Absolute Neuts (auto) 4.0 Absolute Lymphs (auto) 2.93 Nucleated RBC % 0 D-Dimer Quant (PE/DVT) < 0.27 L Sodium 138 Potassium 3.9 Chloride 104 Carbon Dioxide 23.3 Anion Gap 11 BUN 9 Creatinine 0.65 L Estim Creat Clear Calc 144.09 Est GFR (MDRD) Non-Af 111 BUN/Creatinine Ratio 14.3 Glucose 109 H Calcium 9.0 Troponin T High Sens < 6 Troponin T Hi Sens 2 Hr < 6 Serum , Qual NEGATIVE Radiography Diagnostic Testing: Clinical Impression(s) from Imaging Studies Chest X-Ray 05/04/24 00:20 IMPRESSION: No Acute Findings. Reading Location: [facility] Discharge Plan Triage Chief Complaint: Chest Pain ED Provider: Daniel Tinajero Dx/Rx/DC Orders Clinical Impression: Chest pain Instructions: ED Chest Pain, Uncertain Cause Prescriptions: No Action topiramate 50 mg tablet 50 mg PO QHS Primary Care Provider: Tara Shea Referrals: Tara Shea, [employer] [facility] [Primary Care Provider] - 3-5 Days Activity Restrictions/Additional Instructions: Follow-up with your primary care physician. Return back to the ED if symptoms change or worsen. Print Language: Tamazight Disposition Disposition: Home, Self Care
[2024-05-04 01:11] VITALS: BP 111/67; PULSE 88; RESP 19; O2SAT 95
[2024-05-04 02:00] VITALS: BP 119/76; PULSE 86; RESP 16; O2SAT 98
[2024-05-04 02:37] LABS: Troponin T High Sens 2 HR < 6 ng/L (<=14)
[2024-05-04 02:53] VITALS: BP 118/68; PULSE 84; RESP 16; TEMP 36.7; O2SAT 97
== END 2024-05-04 02:55 | disposition home or self-care (01) ==
PROVIDERS: Emergency Provider Surgery; PCP Nurse Practitioner Family; Visit Provider Surgery
DX: R07.89 Other chest pain (principal)
CPT/HCPCS: 71045; 80048; 84484; 84703; 85025; 85379; 93005; 99284; A4216